=== PATIENT | male | born 1950 | race Caucasian/White ===

== ENCOUNTER 2024-01-17 08:56 | Outpatient (CLI) | payer MEDICARE, SELFPAY ==
--- OUTSIDE RECORDS SUMMARY | 2024-01-17 09:04 | XMS_ITS | Referral Summary ---
Author Organization [facility] Address [address] [place] [address] Care Team Providers Care Flame Cutting Machine Operator Name Role Phone Elsewhere, Pcp Primary Care Provider Unavailabl e Source Comments Patient records contain information from all sites at [facility]. For routine questions regarding patient records, call [phone] during business hours, M-F 8:00 AM - 5:00 PM Central Time. Record requests for emergency care only can be directed to [phone] at any time.[facility] Encounters Date Type Department Care Team Description 01/17/2024 8:30 AM CDT External Outreach Division of Nephrology and Hypertension in [place], [place] [address] [place] [address] Taylor Nunez M.D., Ph.D. Arrived 12/29/2023 10:24 AM CDT - 12/29/2023 11:59 PM CDT Hospital Encounter Department of Radiology in [address] [address] Rolan Murdock M.D. Fracture Rib Multiple Closed Initial Right Discharge Disposition: Home or Self Care 12/29/2023 10:00 AM CDT Office Visit Department of Family Medicine, [facility], in [address] [address] Rolan Murdock M.D. Fracture Rib Multiple Closed Initial Right (Primary Dx) Discharge Disposition: Home or Self Care 12/22/2023 11:43 AM CDT - 12/22/2023 2:03 PM CDT Emergency [facility] [address] [place] [phone] Koki Mar APRN, C.N.P., D.N.P. Fracture Rib Multiple Closed Initial Right (Primary Dx) Discharge Disposition: Home or Self Care from Last 3 Months Allergies No known active allergies Medications Medication Sig Dispensed Refills Start Date End Date Status lisinopriL 20 mg tablet Take 2 tablets by mouth daily. 09/09/2016 Active FLUoxetine (PROzac) 20 mg capsule Take 20 mg by mouth daily. 11/14/2023 Active allopurinoL (Zyloprim) 300 mg tablet Take 100 mg by mouth daily. 09/09/2016 Active metoprolol succinate (Toprol XL) 100 mg 24 hr tablet Take 100 mg by mouth daily. Do not crush or chew. Active hydroCHLOROthiazide (HydroDiuril) 25 mg tablet Take 25 mg by mouth daily. Active oxyCODONE (Roxicodone) 5 mg immediate release tabletIndications:A cute Pain Take 1 tablet (5 mg total) by mouth every 6 (six) hours as needed for severe pain or score 7-10 of 10 for up to 3 days Indication: Acute Pain. 12 tablet 12/22/2023 12/25/2023 lidocaine (Lidoderm) 5 % adhesive patch,medicated Place 1 patch on the skin daily for 10 days. Apply to right lower chest/ribs. 10 patch 12/22/2023 01/01/2024 Active Problems Problem Noted Date Diagnosed Date History Of Falling 12/29/2023 Social History Tobacco Use Types Packs/Day Years Used Date Smoking Tobacco: Former Smokeless Tobacco: Never Tobacco Cessation:Counseling Given: Not Answered PHQ-2 Answer Date Recorded PHQ-2 Score 2 12/29/2023 Nutrition Answer Date Recorded Nutrition: EVOO Fat Source 13 12/24 Nutrition: Servings of Fruits/Vegetables per Day Not on file 12/25/2019 Dental Answer Date Recorded Dental: Regular Dentist Unknown 06/11/19 21 Sex and Gender Information Value Date Recorded Sex Assigned at Not on file Gender Identity Not on file Sexual Orientation Not on file Last Filed Vital Signs Vital Sign Reading Time Taken Comments Blood Pressure 150/77 12/29/2023 9:49 AM CDT Pulse 73 12/29/2023 9:49 AM CDT Temperature 35.8 ??C (96.4 ??F) 12/29/2023 9:41 AM CD T Respiratory Rate 18 12/22/2023 11:42 AM CDT Oxygen Saturation 95% 12/22/2023 1:52 PM CDT Inhaled Oxygen Concentration - - Weight 73.3 kg (161 lb 9.6 oz) 12/29/2023 9:41 A M CDT Height 172.5 cm (5' 7.91) 12/29/2023 9:41 AM CD T Body Mass Index 24.63 12/29/2023 9:41 AM CDT Plan of Treatment Not on file Procedures Procedure Name Priority Date/Time Associated Diagnosis Comments DX CHEST AP OR PA AND LATERAL 2 VIEWS RAD - Routine (most inpatients and all outpatients) 12/29/2023 10:36 AM CDT Fracture Rib Multiple Closed Initial Right DX CHEST AP OR PA AND LATERAL 2 VIEWS RAD - Semiurgent (Fast; most ED patients; some inpatients) 12/22/2023 12:48 PM CDT LACTATE, B/P STAT 12/22/2023 12:27 PM CDT BASIC METABOLIC PANEL, S/P STAT 12/22/2023 12:27 PM CDT CBC WITH DIFFERENTIAL, B STAT 12/22/2023 12:27 PM CDT SARS COV-2,INFLUENZA A/B,RSV,PCR, V STAT 12/22/2023 12:25 PM CDT from Last 3 Months Results * DX Chest AP or PA and Lateral 2 Views (12/29/2023 10:36 AM CDT) Only the most recent of2 resultswithin the time period is included. Anatomical Region Laterality Modality Chest, Thoracic RST LOS, Tho racic ARZ LOS, Thoracic FLA LOS N/A Digital Radiography Impressions 12/29/2023 11:19 AM CDT Comparison 12/22/2023. There are again multiple mildly displaced right lateral rib fractures which appear unchanged from the prior study. No pleural effusion, pneumothorax or focal consolidation. Heart size normal. Narrative 12/29/2023 11:19 AM CDT EXAM: DX CHEST AP OR PA AND LATERAL 2 VIEWS Procedure Note Chago Car M.D. - 12/29/2023 EXAM: DX CHEST AP OR PA AND LATERAL 2 VIEWS IMPRESSION: Comparison 12/22/2023. There are again multiple mildly displaced right lateral rib fractureswhich appear unchanged from the prior study. No pleural effusion,pneumothorax or focal consolidation. Heart size normal. Rolan Murdock M.D. G DIAGNOSTIC IMAGI NG PROCEDURES * (ABNORMAL) CBC with Differential, Blood (12/22/2023 12:27 PM CDT) Hemoglobin 11.9(L) 13.2 - 16.6 g/dL 12/22/2023 12:36 PM CDT [facility] Hematocrit 32.3(L) 38.3 - 48.6 % 12/22/2023 12:36 PM CDT [facility] Erythrocytes 3.60(L) 4.35 - 5.65 x10(12)/L 12/22/2023 12:36 PM CDT [facility] MCV 89.7 78.2 - 97.9 fL 12/22/2023 12:36 PM CDT [facility] RBC Distrib Width 13.0 11.8 - 14.5 % 12/22/2023 12:36 PM CDT [facility] Platelet Count 376(H) 135 - 317 x10(9)/L 12/22/2023 12:36 PM CDT [facility] Leukocytes 15.7(H) 3.4 - 9.6 x10(9)/L 12/22/2023 12:36 PM CDT [facility] Neutrophils 13.07(H) 1.56 - 6.45 x10(9)/L 12/22/2023 12:36 PM CDT [facility] Lymphocytes 1.28 0.95 - 3.07 x10(9)/L 12/22/2023 12:36 PM CDT [facility] Monocytes 1.21(H) 0.26 - 0.81 x10(9)/L 12/22/2023 12:36 PM CDT [facility] Eosinophils 0.04 0.03 - 0.48 x10(9)/L 12/22/2023 12:36 PM CDT [facility] Basophils 0.06 0.01 - 0.08 x10(9)/L 12/22/2023 12:36 PM CDT [facility] Blood (Blood, Venous) 12/22/2023 12:27 PM CDT 12/22/2023 12:30 PM CDT Koki Mar APRN C.N.P., D.N.P. LA B BLOOD ADD-ON [facility] [address] [place] [address], [place] [address], [facility] [address] [address] * Lactate (12/22/2023 12:27 PM CDT) Lactate, P 1.7 0.5 - 2.2 mmol/L 12/22/2023 12:47 PM CDT [facility] Blood (Blood, Venous) 12/22/2023 12:27 PM CDT 12/22/2023 12:30 PM CDT Koki Mar APRN, C.N.P., D.N.P. LA B BLOOD NON ADD-ON [facility] [address] [place] [address], [facility] [address] [address] * (ABNORMAL) Basic Metabolic Panel (12/22/2023 12:27 PM CDT) Potassium, P 4.1 3.6 - 5.2 mmol/L 12/22/2023 12:49 PM CDT [facility] Sodium, P 121(L) 135 - 145 mmol/L 12/22/2023 12:49 PM CDT [facility] Chloride, P 81(L) 98 - 107 mmol/L 12/22/2023 12:49 PM CDT [facility] Bicarbonate, P 29 22 - 29 mmol/L 12/22/2023 12:49 PM CDT [facility] Anion Gap, P 11 7 - 15 12/22/2023 12:49 PM CDT [facility] BUN (Blood Urea Nitrogen), P 17 8 - 24 mg/dL 12/22/2023 12:49 PM CDT [facility] Creatinine 1.25 0.74 - 1.35 mg/dL 12/22/2023 12:49 PM CDT [facility] Estimated GFR (eGFR) 62 >=60 mL/min/BSA 12/22/2023 12:49 PM CDT [facility] Comment: Estimated GFR calculated using the 2020 CKD_EPI creatinine equation. Calcium, Total, P 9.1 8.8 - 10.2 mg/dL 12/22/2023 12:49 PM CDT [facility] Glucose, P 163(H) 70 - 140 mg/dL 12/22/2023 12:49 PM CDT [facility] Blood (Blood, Venous) 12/22/2023 12:27 PM CDT 12/22/2023 12:30 PM CDT Koki Mar APRN, C.N.P., D.N.P. LA B BLOOD ADD-ON [facility] [address] [place] [id number], [facility] in [place] [address] [place] [address] * SARS CoV-2, Influenza A/B, RSV, PCR Symptomatic (12/22/2023 12:25 PM CDT) Influenza A, PCR Undetected Undetected 12/22/19 1:11 PM CDT [facility] Comment:Influenza A viral RN A absent. Influenza B, PCR Undetected Undetected 12/22/19 1:11 PM CDT [facility] Comment:Influenza B viral RN A absent. Respiratory Syncytial Virus, PCR Undetected Undetected 12/22/2023 1:11 PM CDT [facility] Comment:RSV RNA absent. SARS-Coronavirus -2, PCR Undetected Undetected 12/22/2023 1:11 PM CDT [facility] Comment: SARS-CoV-2 RNA absent. ?? ----ADDITIONAL INFORMATION---- This RT-PCR test using the Xpert Xpress SARS-CoV-2/Flu/RSV assay ([employer] performed on the [employer] systems has received Emergency Use Authorization (EUA) by the U.S. Food and Drug Administration. Performance characteristics were verified by [facility] in a manner consistent with CLIA requirements. Fact sheets for this Emergency Use Authorization (EUA) assay can be found at the following links: For Healthcare Providers: https://www.fda.gov/media/489486/download For Patients: https://www.fda.gov/media/958175/download Specimen Source Swab, Nasopharynx 12/22/2023 12:30 PM CDT [facility] Swab (Nasopharynx) 12/22/2023 12:25 PM CDT 12/22/2023 12:30 PM CDT Koki Mar APRN, C.N.P., D.N.P. LA Chu MICROBIOLOGY - GENERAL ORDERABLES [facility] [address] [place] [address], [facility] in [place] [address] [place] [address] from Last 3 Months Care Teams Flame Cutting Machine Operator Relationship Specialty Start Date End Date Elsewhere, Pcp PCP - General Internal Medicine 12/22/23
--- OUTSIDE RECORDS SUMMARY | 2024-01-17 09:04 | XMS_ITS | Clinical Summary ---
Author Organization [facility] Address [address] [place] [address] Care Team Providers Care Lap Grinder Name Role Phone Elsewhere, Pcp Primary Care Provider Unavailabl e Source Comments Patient records contain information from all sites at [facility]. For routine questions regarding patient records, call [phone] during business hours, M-F 8:00 AM - 5:00 PM Central Time. Record requests for emergency care only can be directed to [phone] at any time.[facility] Allergies No known active allergies Medications Medication [...] Date Diagnosed Date History Of Falling 12/29/2023 Encounters Date Type Department Care Team Description 01/17/2024 8:30 AM CDT External Outreach Division of Nephrology and Hypertension in [place], [place] [address] [place] [address] Taylor Nunez M.D., Ph.D. Arrived 12/29/2023 10:24 AM CDT - 12/29/2023 11:59 PM CDT Hospital Encounter Department of Radiology in [address] [phone] Rolan Murdock M.D. Fracture Rib Multiple Closed Initial Right Discharge Disposition: Home or Self Care 12/29/2023 10:00 AM CDT Office Visit Department of Family Medicine, [facility], in [address] [phone] Rolan Murdock M.D. Fracture Rib Multiple Closed Initial Right (Primary Dx) Discharge Disposition: Home or Self Care 12/22/2023 11:43 AM CDT - 12/22/2023 2:03 PM CDT Emergency [facility] [address] [place] [phone] Koki Mar, LISANDRO, C.N.P., D.N.P. Fracture Rib Multiple Closed Initial Right (Primary Dx) Discharge Disposition: Home or Self Care from Last 3 Months Social History Tobacco Use Types Packs/Day Years [...] 12/29/2023 9:41 AM CDT Plan of Treatment Health Maintenance Due Date Last Done Comments Abdominal Aortic Aneurysm (AAA) Screen 1952 CT Colonography 1952 Cologuard 1950 Colonoscopy 1950 Colorectal Cancer Screening 1950 FIT 1950 Hepatitis C Screening 1950 DTaP,Tdap,and Td Vaccines (1 - Tdap) 01/28/1971 Zoster Vaccines (1 of 2) 01/28/2002 Pneumococcal vaccine (65+ ye ars) (1 of 1 - PCV) 01/28/2017 COVID-19 Vaccine (1 - season) 2023 Influenza Vaccine (#1) 2024 Creatinine Level (Kidney Function Test) 12/21/2024 0 12/22/2023, 09/09/2016 Potassium Level 12/21/2024 12/22/2023, 09/09/2016 Sodium Level 12/21/2024 12/22/2023, 09/09/2016 Fasting Glucose for Diabetes Screening 12/21/2026, 09/09/2016 Depression Screening (Annual PHQ-2) Completed 12/28, 12/29/2023 Fall Risk Screen (Annual) Completed 12/29/2023 Procedures Procedure Name Priority Date/Time Associated Diagnosis [...] consolidation. Heart size normal. Rolan Murdock M.D. IM[facility]enaida DIAGNOSTIC IMAGI NG PROCEDURES * (ABNORMAL) CBC [...] APRN, C.N.P., D.N.P. LA B BLOOD ADD-ON [facility] [address] [place] [address], [facility] [place] [address] [address] * Lactate (12/22/2023 12:27 PM CDT) Lactate, P 1.7 0.5 - 2.2 mmol/L 12/22/2023 12:47 PM CDT [facility] Blood (Blood, Venous) 12/22/2023 12:27 PM CDT 12/22/2023 12:30 PM CDT Koki Mar APRN, C.N.P., D.N.PSisi LA B BLOOD NON ADD-ON [facility] [address] [place] [address], [facility] [place] [address] [place] [address] * (ABNORMAL) Basic Metabolic Panel (12/22/2023 12:27 [...] 12:30 PM CDT Koki Mar APRN, C.N.P., D.N.PSisi LA Chu BLOOD ADD-ON [facility] [address] [place] [address], [facility] [place] [address] [place] [address] * SARS CoV-2, Influenza A/B, RSV, PCR [...] test using the Xpert Xpress SARS-CoV-2/Flu/RSV assay ([employer] performed on the [employer] systems has received Emergency Use Authorization (EUA) by the U.S. Food and Drug Administration. Performance characteristics were verified by [facility] in a manner consistent with CLIA requirements. Fact sheets for this Emergency Use Authorization (EUA) assay can be found at the following links: For Healthcare Providers: https://www.fda.gov/media/976991/download For Patients: https://www.fda.gov/media/244108/download Specimen Source Swab, Nasopharynx 12/22/2023 12:30 PM CDT [facility] Swab (Nasopharynx) 12/22/2023 12:25 PM CDT 12/22/2023 12:30 PM CDT Socorro Last APRNNSisiPSisi, Fuad YA MICROBIOLOGY - GENERAL ORDERABLES [facility] [address] [place] [address], [facility] [place] [address] [place] [address] from Last 3 Months Care Teams Lap Grinder Relationship Specialty Start Date End Date Elsewhere, Pcp PCP - General Internal Medicine 12/22/23
--- OUTSIDE RECORDS SUMMARY | 2024-01-17 09:04 | XMS_ITS | Encounter Summary ---
Author Organization [facility] Address [address] [place] [address] Care Team Providers Care Geriatric Physical Therapist Name Role Phone Elsewhere, Pcp Primary Care Provider Unavailabl e Reason for Referral * Outpatient (Routine) - Closed Specialty Diagnoses / Procedures Referred By Shelia jaramillo Referred To Contact Emergency Medicine Diagnoses Fracture Rib Multiple Closed Initial Right Koki Mar APRN, C.N.P., D.N.P. [address] [place] [address] [facility] Referral ID Status Reason Start Date Expiration Date Visits Re quested Visits Authorized [id number] Closed 12/22/2023 06/22/2025 1 1 Reason for Visit * Reason Comments Chest Wall Pain Encounter Details Date Type Department Care Team (Late st Contact Info) Description 12/22/2023 11:43 AM CDT - 12/22/2023 2:03 PM CDT Emergency [place] [facility] [address] [place] [phone] Koki Mar APRN, C.N.P., D.N.P. [address] [place] [phone] Fracture Rib Multiple Closed Initial Right (Primary Dx) Discharge Disposition: Home or Self Care Social History Tobacco Use Types Packs/Day Years Used Date Smoking Tobacco: Former Nutrition Answer Date Recorded Nutrition: EVOO Fat Source 13 12/24 Nutrition: Servings of Fruits/Vegetables per Day Not on file 12/25/2019 Dental Answer Date Recorded Dental: Regular Dentist Unknown 06/11/19 21 Sex and Gender Information Value Date Recorded Sex Assigned at Not on file Gender Identity Not on file Sexual Orientation Not on file documented as of this encounter Last Filed Vital Signs Vital Sign Reading Time Taken Comments Blood Pressure 173/77 12/22/2023 2:00 PM CDT Pulse 57 12/22/2023 1:52 PM CDT Temperature 37.1 ??C (98.8 ??F) 12/22/2023 11:42 AM C DT Respiratory Rate 18 12/22/2023 11:42 AM CDT Oxygen Saturation 95% 12/22/2023 1:52 PM CDT Inhaled Oxygen Concentration - - Weight 74.5 kg (164 lb 2.1 oz) 12/22/2023 11:40 AM CDT Height - - Body Mass Index 24.24 09/09/2016 3:01 PM CDT documented in this encounter Discharge Instructions * Discharge Instructions* Koki Mar APRN, C.N.P., D.N.P. - 12/22/2023 1:41 PM CDT An electronic referral submitted to the primary clinic for follow-up in 1 week for deputy chief sheriff x-ray; they will call you to schedule. Alternate acetaminophen 500 mg every 4 hours with ibuprofen 600 mg every 6 hours as needed for pain, reserving your prescription pain medication for breakthrough pain. Your prescription pain medication will make you drowsy and may constipate you. Increase your fluid and fiber intake and utilize stool softeners and/or laxatives as needed to maintain normal bowel function. Make position changes slowly and do not operate heavy machinery or drink alcoholic beverages. Do your incentive spirometry breathing 10 times every hour during awake hours to prevent the development of pneumonia. Return to the ED immediately if you develop any difficulty breathing, chest pain, or fevers greater than 100.4. * Attachments The following attachments cannot be sent through Care Everywhere. * Oxycodone Capsules or Tablets (Marshallese) * Rib Fracture [id number] (Marshallese) * Using an Incentive Spirometer (Marshallese) documented in this encounter Medications at Time of Discharge Medication Sig Dispensed Refills Start Date End Date allopurinoL (Zyloprim) 300 mg tablet Take 100 mg by mouth daily. 09/09/2016 FLUoxetine (PROzac) 20 mg capsule Take 20 mg by mouth daily. 11/14/2023 hydroCHLOROthiazide (HydroDiuril) 25 mg tablet Take 25 mg by mouth daily. lisinopriL 20 mg tablet Take 2 tablets by mouth daily. 09/09/2016 metoprolol succinate (Toprol XL) 100 mg 24 hr tablet Take 100 mg by mouth daily. Do not crush or chew. lidocaine (Lidoderm) 5 % adhesive patch,medicated Place 1 patch on the skin daily for 10 days. Apply to right lower chest/ribs. 10 patch 12/22/2023 01/01/2024 oxyCODONE (Roxicodone) 5 mg immediate release tabletIndications:Acute Pain Take 1 tablet (5 mg total) by mouth every 6 (six) hours as needed for severe pain or score 7-10 of 10 for up to 3 days Indication: Acute Pain. 12 tablet 12/22/2023 12/25/2023 documented as of this encounter Progress Notes * Hilary Espinoza R.R.T., C.R.T. - 12/22/2023 1:36 PM CDT Educated Pt on the Incentive Spirometer due to 4 rib fractures. Also, educated to hold a pillow while coughing. documented in this encounter ED Notes * Koki Mar APRN, C.N.P., D.N.P. - 12/22/2023 11:55 AM CDT SUBJECTIVE CHIEF COMPLAINT/REASON FOR VISIT Chest Wall Pain HISTORY OF PRESENT ILLNESS History provided by: Patient and medical records supervisor fur floor worker needed/used: no Mr. Joselito Diaz Is a 73-year-old male who presents via private vehicle accompanied with complaints of right-sided rib pain during a fall approximately 1 week ago onto the right side of hischest. Medical history includes hypertension, gout, and depression. He recalls tripping over his [employer] last week hitting the right side of his chest into the coffee table. He is not anticoagulated, did not lose consciousness, and did not his head. Pain has persisted since that time and isminimally responsive to Tylenol which he last took at 10:00 a.m.. He presents now with new chills an intermittently productive cough. No rash or change in bowel or bladder function or p.o. intake. REVIEW OF SYSTEMS Respiratory: See HPI above. OBJECTIVE Initial Vitals [12/22/23 1142] Temperature 37.1 ??C Pulse Rate 63 Heart Rate Resp Rate 18 Blood Pressure (!) 171/67 SpO2 96 % Pain Score 9 PHYSICAL EXAMINATION Constitutional: Nursing note and vitals reviewed. No distress. HENT: Head: Normocephalic and atraumatic. Head is without raccoon's eyes and without Alcala's sign.There is normal jaw occlusion. Mouth/Throat: Mucous membranes are moist. Eyes: Conjunctivae and EOM are normal. Pupils are equal, round, and reactive to light. Neck: Neck supple. Moving head and neck freely in all directions. No cervical, thoracic, lumbar, or sacral spine tenderness or step-offs. No pain with axial loading. Bilateral buttocks sensation intact bilaterally. Cardiovascular: Normal rate, S1 normal and S2 normal. Pulses are strong. Capillary refill: takes less than 3 secondsEdema: no edema noted Pulmonary/Chest: Effort normal and breath sounds normal. There is normal air entry. No stridor. No respiratory distress. He has no wheezes. He has no rhonchi. He has no rales. No deformity, ecchymosis, abrasion, or dermatomal rash to the anterior and posterior thorax. No flail chest. No crepitus. Right anterior rib pain is reproducible. Abdominal: Soft. exhibits no distension. There is no abdominal tenderness. There is no rebound and no guarding. Musculoskeletal: General: Normal range of motion. Cervical back: Normal range of motion and neck supple. Neurological: Alert. He has normal strength. He is not disoriented. Normal speech. Gait normal. Skin: Skin is warm, dry and intact. No rash noted. Psychiatric: He has a normal mood and affect. Behavior is normal. ASSESSMENT/PLAN 73-year-old male presents hypertensive but otherwise afebrile and hemodynamically appropriate with complaints of 10/10 right anterior rib pain following a ground level mechanical fall approximate 1 week ago in his home (tripped over cat). He is concerned for his ongoing pain and new onset chills with intermittently productive cough. Will maintain a broad differential in obtain screening labs including chest x-ray for further evaluation. Differentials considered include but not limited to rib fracture, pneumothorax, hemothorax, chest wall contusion, pneumonia, among others. Presentation and phy sical exam findings are not consistent with herpes zoster. Pulmonary hygiene via incentive spirometry with intramuscular Toradol and Lidoderm patch for symptomatic relief. ED Course as of 12/22/23 1342 Vicky Dec 22, 2023 1306 Creatinine: 1.25 No acute kidney injury. Normal creatinine, BUN and eGFR. Normal potassium. Sodium 121 and chloride 81. 1307 Lactate: 1.7 Normal lactate. 1308 Leukocytes(!): 15.7 Neutrophilic predominant leukocytosis at 15.7. Hemoglobin 11.9 and platelet count 376. 1311 I reviewed the chest x-ray images and agree with radiologist impression: Mildly displaced right lateral fifth, sixth, seventh and eighth rib fractures. No pneumothorax. Mild bibasilar atelectasis, left greater than right. No pleural effusion or focal consolidation. Heart size normal. 1311 ATC contacted for TCGS consultation for multiple mildly displaced rib fractures (right [id number]). Text paged general surgery in [place]. 1312 Influenza A, PCR: Undetected 1313 Influenza B, PCR: Undetected 1313 Respiratory Syncytial Virus, PCR: Undetected 1313 SARS Coronavirus-2, PCR: Undetected 1320 Call received from [place] [facility] on behalf of Dr. Tyalor. He agrees with outpatient follow up in one week for repeat CXR with pulmonary hygiene and pain control. 1325 Diagnostic results were discussed with the patient and his support person in plain, every day language. All questions answered and concerns addressed. They verbalized understanding and agreementwith the plan to discharge home with follow-up in 1 week for repeat imaging with pulmonary hygiene and pain control. Discussed narcotic safety measures and return precautions. Final Diagnoses: as of 12/22/23 1342 Fracture Rib Multiple Closed Initial Right - mildly displaced, right lateral ribs 5th-8th Koki Mar APRN, C.N.P., D.N.P. 12/22/23 1342 * Amber Benitez R.N. - 12/22/2023 11:41 AM CDT Pt fell 1 week ago; injury to right side of chest. Pt has change in breathing, new cough, cold. Amber Benitez R.N. 12/22/23 1141 documented in this encounter Plan of Treatment Scheduled Referrals Name Type Priority Associated Diagnoses Orde r Schedule POST ED VISIT Family Medicine Outpatient Referral Routine Fracture Rib Multiple Closed Initial Right Expected: 12/29/2023, Expires: 03/22/2025 documented as of this encounter Procedures Procedure Name Priority Date/Time Associated Diagnosis Comments DX CHEST AP OR PA AND LATERAL 2 VIEWS RAD - Semiurgent (Fast; most ED patients; some inpatients) 12/22/2023 12:48 PM CDT CBC WITH DIFFERENTIAL, B STAT 12/22/2023 12:27 PM CDT LACTATE, B/P STAT 12/22/2023 12:27 PM CDT BASIC METABOLIC PANEL, S/P STAT 12/22/2023 12:27 PM CDT SARS COV-2,INFLUENZA A/B,RSV,PCR, V STAT 12/22/2023 12:25 PM CDT documented in this encounter Results * DX Chest AP or PA and Lateral 2 Views (12/22/2023 12:48 PM CDT) Anatomical Region Laterality Modality Chest, Thoracic RST LOS, Tho racic ARZ LOS, Thoracic FLA LOS N/A Digital Radiography Impressions 12/22/2023 1:00 PM CDT Comparison 09/09/2016. Mildly displaced right lateral fifth, sixth, seventh and eighth rib fractures. No pneumothorax. Mild bibasilar atelectasis, left greater than right. No pleural effusion or focal consolidation. Heart size normal. Narrative 12/22/2023 1:00 PM CDT EXAM: DX CHEST AP OR PA AND LATERAL 2 VIEWS Procedure Note Chago Car M.D. - 12/22/2023 EXAM: DX CHEST AP OR PA AND LATERAL 2 VIEWS IMPRESSION: Comparison 09/09/2016. Mildly displaced right lateral fifth, sixth, seventh and eighth ribfractures. No pneumothorax. Mild bibasilar atelectasis, left greater thanright. No pleural effusion or focal consolidation. Heart size normal. Koki Mar APRN, C.N.P., D.N.P. IM G DIAGNOSTIC IMAGING PROCEDURES * Lactate (12/22/2023 12:27 PM CDT) Lactate, P 1.7 0.5 - 2.2 mmol/L 12/22/2023 12:47 PM CDT [facility] Blood (Blood, Venous) 12/22/2023 12:27 PM CDT 12/22/2023 12:30 PM CDT Koki Mar APRN, C.N.P., D.N.P. LA B BLOOD NON ADD-ON [facility] [address] [place] [address], [facility] [place] [address] [place] [phone] * (ABNORMAL) Basic Metabolic Panel (12/22/2023 12:27 [...] APRN, C.N.P., D.N.P. LA B BLOOD ADD-ON [facility] [address] [place] [address], [facility] [place] [address] [place] [address] * (ABNORMAL) CBC with Differential, Blood (12/22/2023 [...] APRN, C.N.P., D.N.P. LA B BLOOD ADD-ON [facility] [address] [place] [address], [facility] [place] [address] [place] [address] * SARS CoV-2, Influenza A/B, RSV, PCR [...] test using the Xpert Xpress SARS-CoV-2/Flu/RSV assay ([employer] performed on the [employer] systems has received Emergency Use Authorization (EUA) by the U.S. Food and Drug Administration. Performance characteristics were verified by [facility] in a manner consistent with CLIA requirements. Fact sheets for this Emergency Use Authorization (EUA) assay can be found at the following links: For Healthcare Providers: https://www.fda.gov/media/829145/download For Patients: https://www.fda.gov/media/213396/download Specimen Source Swab, Nasopharynx 12/22/2023 12:30 PM CDT [facility] Swab (Nasopharynx) 12/22/2023 12:25 PM CDT 12/22/2023 12:30 PM CDT Koki Mar APRN, C.N.P., D.N.P. LA Chu MICROBIOLOGY - GENERAL ORDERABLES [facility] [address] [place] [address], [facility] [place] [phone] documented in this encounter Visit Diagnoses Diagnosis Fracture Rib Multiple Closed Initial Right- Primary documented in this encounter Administered Medications Inactive Administered Medications - up to 3 most recent administrations Medication Order MAR Action Action Date Dose Rate Site ketorolac injection 15 mg (ToradoL) 15 mg, intramuscular, Once, On Vicky 12/22/23 at 1217, For 1 dose, Adult IV push rate: Over 15 seconds. Peds IV push rate: Over 1 minute. Doses > 15 mg IV/IM are discouraged due to lack of additional analgesic benefit. Given 12/22/2023 12:23 PM CDT 15 mg Left Deltoid lidocaine 5 % 1 patch (Lidoderm) 1 patch, transdermal, Administer over 12 Hours, Once, On Vicky 12/22/23 at 1217, For 1 dose, Remove after 12 hours. Medication Applied 12/22/2023 12:24 PM CDT 1 patch Left Lower Abdomen oxyCODONE IR tablet 5 mg (Roxicodone) 5 mg, oral, Once, On Vicky 12/22/23 at 1316, For 1 dose Given 12/22/2023 1:19 PM CDT 5 mg documented in this encounter Active and Recently Administered Medications Times are shown in CDT. Scheduled Medication Order 12/20/2023 12/21/2023 12/22/2023 ketorolac injection 15 mg (ToradoL) (COMPLETED) 15 mg, intramuscular, Once, On Vicky 12/22/23 at 1217, For 1 dose, Adult IV push rate: Over 15 seconds. Peds IV push rate: Over 1 minute. Doses > 15 mg IV/IM are discouraged due to lack of additional analgesic benefit. 1223 (Given - Provid er: Radha Vazquez R.N.) lidocaine 5 % 1 patch (Lidoderm) 1 patch, transdermal, Administer over 12 Hours, Once, On Vicky 12/22/23 at 1217, For 1 dose, Remove after 12 hours. 1224 (Medication Brennan lied - Provider: Radha Vazquez R.N. - Comment: over left ribs)1403 (Due: Medication Removed - Provider: Discharge Provider, Automatic - Comment: Time automatically adjusted from order being discontinued) oxyCODONE IR tablet 5 mg (Roxicodone) (COMPLETED) 5 mg, oral, Once, On Vicky 12/22/23 at 1316, For 1 dose 1319 (Given - Provid er: Radha Vazquez R.N.) documented in this encounter Additional Health Concerns Infection Onset Date Last Indicated Resolved Time COVID19 Pending 12/22/2023 12/22/2023 12/22/2023 1 :11 PM CDT documented as of this encounter Care Teams Geriatric Physical Therapist Relationship Specialty Start Date End Date Elsewhere, Pcp PCP - General Internal Medicine 12/22/23 documented as of this encounter
--- OUTSIDE RECORDS SUMMARY | 2024-01-17 09:04 | XMS_ITS | Encounter Summary ---
Author Organization [facility] Address [address] [place] [address] Care Team Providers Care Television Specialist Name Role Phone Elsewhere, Pcp Primary Care Provider Unavailabl e Reason for Referral * Outpatient (Routine) - Closed Specialty Diagnoses / Procedures Referred By Shelia jaramillo Referred To Contact Diagnoses Fracture Rib Multiple Closed Initial Right Procedures DX Chest AP or PA and Lateral 2 Views Rolan Murdock M.D. [address] [place] [phone] [facility] Referral ID Status Reason Start Date Expiration Date Visits Re quested Visits Authorized [id number] Closed 12/29/2023 12/28/2024 1 1 Reason for Visit * Outpatient (Routine) - Closed Specialty Diagnoses / Procedures Referred By Shelia jaramillo Referred To Contact Diagnoses Fracture Rib Multiple Closed Initial Right Procedures DX Chest AP or PA and Lateral 2 Views Rolan Murdock M.D. [address] [place] [phone] [facility] Referral ID Status Reason Start Date Expiration Date Visits Re quested Visits Authorized [id number] Closed 12/29/2023 12/28/2024 1 1 Encounter Details Date Type Department Care Team (Latest Contact Info) Description 12/29/2023 10:24 AM CDT - 12/29/2023 11:59 PM CDT Hospital Encounter Department of Radiology in [address] [phone] Rolan Murdock M.D. [address] [facility] [place] [phone] Fracture Rib Multiple Closed Initial Right Discharge Disposition: Home or Self Care Social History Tobacco Use Types Packs/Day Years Used Date Smoking Tobacco: Former Smokeless Tobacco: Never PHQ-2 Answer Date Recorded PHQ-2 Score 2 [...] on file documented as of this encounter Medications at Time of Discharge [...] right lower chest/ribs. 10 patch 12/22/2023 01/01/2024 documented as of this encounter Plan of Treatment Not on file documented as of this encounter Procedures Procedure Name Priority Date/Time Associated Diagnosis Comments DX CHEST AP OR PA AND LATERAL 2 VIEWS RAD - Routine (most inpatients and all outpatients) 12/29/2023 10:36 AM CDT Fracture Rib Multiple Closed Initial Right documented in this encounter Results * DX Chest AP or PA and Lateral 2 Views (12/29/2023 10:36 AM CDT) Anatomical Region Laterality Modality Chest, Thoracic [...] or focal consolidation. Heart size normal. Rolan [facility] NG PROCEDURES documented in this encounter Visit Diagnoses Diagnosis Fracture Rib Multiple Closed Initial Right documented in this encounter Care Teams Television Specialist Relationship Specialty Start Date End Date Elsewhere, Pcp PCP - General Internal Medicine 12/22/23 documented as of this encounter
--- OUTSIDE RECORDS SUMMARY | 2024-01-17 09:04 | XMS_ITS | Encounter Summary ---
Author Organization [facility] Address [address] [place] [address] Care Team Providers Care Maintenance Engineer Name Role Phone Elsewhere, Pcp Primary Care Provider Unavailabl e Reason for Visit * Appointment Request (Routine) - Closed Specialty Diagnoses / Procedures Referred By Shelia jaramillo Referred To Contact Nephrology and Hypertension Florin Enriquez M.D. [address] [place] [phone] Referral ID Status Reason Start Date Expiration Date Visits Re quested Visits Authorized [id number] Closed 12/23/2023 12/22/2024 1 1 Encounter Details Date Type Department Care Team (Late st Contact Info) Description 01/17/2024 8:30 AM CDT External Outreach Division of Nephrology and Hypertension in [place], [place] [address] [place] [phone] Taylor Nunez M.D., Ph.D. [address] [place] [phone] Arrived Social History Tobacco Use Types Packs/Day Years [...] on file documented as of this encounter Plan of Treatment Not on file documented as of this encounter Visit Diagnoses Not on filedocumented in this encounter Care Teams Maintenance Engineer Relationship Specialty Start Date End Date Elsewhere, Pcp PCP - General Internal Medicine 12/22/23 documented as of this encounter
--- OUTSIDE RECORDS SUMMARY | 2024-01-17 09:04 | XMS_ITS ---
Author Organization [facility] Address [address] [place] [address] Care Team Providers Care Field Marketing Associate Name Role Phone Unavailable Unavailable Unavailable Surgery Details Not on file Complications Check Surgery Details section. Procedure Estimated Blood Loss Check Surgery Details section. Procedure Findings Check Surgery Details section. Procedure Specimens Taken Check Surgery Details section.
--- OUTSIDE RECORDS SUMMARY | 2024-01-17 09:04 | XMS_ITS | Encounter Summary ---
Author Organization [facility] Address [address] [place] [address] Care Team Providers Care Community Coordinator For [employer] Name Role Phone Elsewhere, Pcp Primary Care Provider Unavailabl e Reason for Referral * Outpatient (Routine) - Closed Specialty Diagnoses / Procedures Referred By Shelia jaramillo Referred To Contact Diagnoses Fracture Rib Multiple Closed Initial Right Procedures DX Chest AP or PA and Lateral 2 Views Rolan Murdock M.D. [address] [place] [address] [facility] Region Referral ID Status Reason Start Date Expiration Date Visits Re quested Visits Authorized [id number] Closed 12/29/2023 12/28/2024 1 1 Reason for Visit * Reason Comments Post Ed Visit Follow-up * Outpatient (Routine) - Closed Specialty Diagnoses / Procedures Referred By Shelia jaramillo Referred To Contact Emergency Medicine Diagnoses Fracture Rib Multiple Closed Initial Right OKoki Golden APRN, C.N.P., D.N.P. [address] [place] [address] [facility] Region Referral ID Status Reason Start Date Expiration Date Visits Re quested Visits Authorized [id number] Closed 12/22/2023 06/22/2025 1 1 Encounter Details Date Type Department Care Team ([facility] st Contact Info) Description 12/29/2023 10:00 AM CDT Office Visit Department of Family Medicine, [facility] [place] [facility], in [address] [address] Rolan Murdock M.D. [address] [facility] [place] [phone] Fracture Rib Multiple Closed Initial Right (Primary [...] 12/29/2023 9:41 AM CD T Respiratory Rate - - Oxygen Saturation - - Inhaled Oxygen Concentration - - Weight 73.3 kg (161 lb 9.6 oz) 12/29/2023 9:41 A M CDT Height 172.5 cm (5' 7.91) 12/29/2023 9:41 AM CD T Body Mass Index 24.63 12/29/2023 9:41 AM CDT documented in this encounter Progress Notes * Rolan Murdock M.D. - 12/29/2023 10:00 AM CDT SUBJECTIVE CHIEF COMPLAINT/REASON FOR VISIT Joselito does not have a problem list on file. He is a 73 y.o. male who presents for evaluation of Post Ed Visit Follow-up HISTORY OF PRESENT ILLNESS Joselito presents for discussion of multiple right sided rib fractures from 2 weeks ago. Patient describes the symptoms as still having some right sided pain, but no troubles breathing. Symptoms are not worsening. He doesn't smoke. He denies any fevers or hemoptysis. Treatments used so far include: Lidoderm patches, Tylenol, oxycodone. Current Outpatient Medications Medication Sig Dispense Refill allopurinoL (Zyloprim) 300 mg tablet Take 100 mg by mouth daily. FLUoxetine (PROzac) 20 mg capsule Take 20 mg by mouth daily. hydroCHLOROthiazide (HydroDiuril) 25 mg tablet Take 25 mg by mouth daily. lidocaine (Lidoderm) 5 % adhesive patch,medicated Place 1 patch on the skin daily for 10 days. Apply to right lower chest/ribs. 10 patch 0 lisinopriL 20 mg tablet Take 2 tablets by mouth daily. metoprolol succinate (Toprol XL) 100 mg 24 hr tablet Take 100 mg by mouth daily. Do not crush or chew. No current facility-administered medications for this visit. The following portions of the patient's history were reviewed and updated as appropriate: allergies, current medications, family history, medical history, social history, surgical history and problemlist. REVIEW OF SYSTEMS General: No acute distress. No fever, chills. Lungs: + cough, no SOB. Abdomen: Denies abdominal pain, no change in bowel habits. Cardiovascular: Positive for chest pain, pressure or tightness. OBJECTIVE Blood pressure 150/77, pulse 73, temperature (!) 35.8 ??C, temperature source Temporal, height 172.5 cm, weight 73.3 kg. PHYSICAL EXAMINATION Constitutional Appearance: He is well-developed. Cardiovascular Rate and Rhythm: Normal rate and regular rhythm. Heart sounds: Normal heart sounds. Pulmonary Effort: Pulmonary effort is normal. Breath sounds: Normal breath sounds. Chest Chest wall: Tenderness (Right-sided) present. Abdominal General: Bowel sounds are normal. There is no distension. Palpations: Abdomen is soft. There is no mass. Tenderness: There is no abdominal tenderness. Neurological Mental Status: He is alert and oriented to person, place, and time. Psychiatric Judgment: Judgment normal. Radiology: DX Chest AP or PA and Lateral 2 Views Narrative: EXAM: DX CHEST AP OR PA AND LATERAL 2 VIEWS Impression: Comparison 12/22/2023. There are again multiple mildly displaced right lateral rib fractures which appear unchanged from the prior study. No pleural effusion, pneumothorax or focal consolidation. Heart size normal. ASSESSMENT / PLAN #1 Fracture Rib Multiple Closed Initial Right Comments: mildly displaced, right lateral ribs 5th-8th Orders: - POST ED VISIT Family Medicine - DX Chest AP or PA and Lateral 2 Views; Future; Expected date: 12/29/2023 - chest x-ray ordered and reviewed today and essentially unchanged compared to 1 week ago. Continueincentive spirometry. He will continue with Lidoderm patches and Tylenol for pain and will use oxycodone only at night. He reports still having 4 tablets left and is unsure if he will need any further oxycodone. Follow-up if new or worsening symptoms develop. - thankfully, his pain is improved but not gone away. documented in this encounter Plan of Treatment Not on file documented as of this encounter Results * DX Chest AP [...] consolidation. Heart size normal. Rolan Murdock M.D. IMG DIAGNOSTIC IMAGI NG PROCEDURES documented in this encounter Visit Diagnoses Diagnosis Fracture Rib Multiple Closed Initial Right- Primary Fracture Rib Multiple Closed Initial Right documented in this encounter Care Teams Community Coordinator For [employer] Relationship Specialty Start Date End Date Elsewhere, Pcp PCP - General Internal Medicine 12/22/23 documented as of this encounter
[2024-01-18 20:48] LABS: Urine Osmolality 329 mOsm/kg (50-800)
== END 2024-01-17 08:57 | disposition home or self-care (01) ==
PROVIDERS: PCP Family Medicine; Visit Provider Internal Medicine Nephrology
DX: I10 Essential (primary) hypertension (principal); E87.1 Hypo-osmolality and hyponatremia
CPT/HCPCS: 80069; 82043; 82088; 82570; 83930; 83935; 83970; 84244; 84300; 84550

== ENCOUNTER 2024-01-23 10:18 | Outpatient (CLI) | payer MEDICARE, SELFPAY ==
--- OUTSIDE RECORDS SUMMARY | 2024-01-23 10:25 | XMS_ITS ---
Author Organization [facility] Address [address] [place] [address] [place] [address] Care Team Providers Care Science Professor Name Role Phone Alicia Ordoñez [phone] REASON FOR VISIT refill MEDICATIONS Medication SIG (Take, Route, Fr equency, Duration) Notes Start Date End Date Status Allopurinol 100 MG 1 tablet Orally Once a day for 90 days Active Lisinopril 40 MG 1 tablet Orally Once a day for 90 days . Active Encounters Encounter Location Date Provider Diagnosis [address] [address] 12/07/2023 Alicia Ordoñez Essential hypertensi on I10 and Gout, unspecified cause, unspecified chronicity, unspecified site M10.9 ASSESSMENTS Encounter Date Diagnosis Assessment Notes Treatment Notes Treatment Clinical Notes 12/07/2023 Essential hypertension (ICD-10 - I10) 12/07/2023 Gout, unspecified cause, unspecified chronicity, unspecified site (ICD-10 - M10.9) PLAN OF TREATMENT Medication Medication Name Sig Start Date Stop Date Notes Allopurinol 100 MG 1 tablet Orally Once a day for 90 days Lisinopril 40 MG 1 tablet Orally Once a day for 90 days . Progress Notes * Joselito STUBBS MDOB:1949 (73 yo M)Acc No.[id number]:12/07/2023 Patient:??Joselito STUBBS :1950?Age:73 Y?Sex:Erin marsh Address:[address], [place], [address] * Refills?? Refill Lisinopril Tablet, 40 MG, Orally, 90 Tablet, 1 tablet, Once a day, 90 days Refill Allopurinol Tablet, 100 MG, Orally, 90 Tablet, 1 tablet, Once a day, 90 days * true * Date:??
--- OUTSIDE RECORDS SUMMARY | 2024-01-23 10:25 | XMS_ITS ---
Author Organization [facility] Address [address] [place] [address] Care Team Providers Care Chief Engineer'S Helper Name Role Phone Smita, Alicia Unavailable [phone] REASON FOR VISIT Refills MEDICATIONS Medication SIG (Take, Route, Fr equency, Duration) Notes Start Date End Date Status FLUoxetine HCl 20 MG 1 capsule in the mo rning Orally Once a day for 90 day(s) 11/14/2023 Active Encounters Encounter Location Date Provider Diagnosis [address] [address] 12/14/2023 Alicia Smita PLAN OF TREATMENT Medication Medication Name Sig Start Date Stop Date Notes FLUoxetine HCl 20 MG 1 capsule in the mo rning Orally Once a day for 90 day(s) 11/14/2023 Progress Notes * Joselito STUBBS MDOB:1949 (73 yo M)Acc No.[id number]:12/14/2023 Patient:??Joselito STUBBS :1950?Age:73 Y?Sex:Erin marsh Address:[address] [place] [address], [address] * Refills?? Refill FLUoxetine HCl Capsule, 20 MG, Orally, 90, 1 capsule in the morning, Once a day, 90 day(s) * true * Date:??
--- OUTSIDE RECORDS SUMMARY | 2024-01-23 10:25 | XMS_ITS | Clinical Summary ---
Author Organization [facility] Address [address] [place] [address] Care Team Providers Care Ecommerce Manager Name Role Phone Elsewhere, Pcp Primary Care Provider Unavailabl e Source Comments Patient records contain information from all sites at [facility]. For routine questions regarding patient records, call [phone] during business hours, M-F 8:00 AM - 5:00 PM Central Time. Record requests for emergency care only can be directed to [phone] at any time.[facility] Allergies No known active allergies Medications lisinopriL 20 mg tablet Take 2 tablets by mouth daily. 09/09/2016 Active FLUoxetine (PROzac) 20 mg capsule Take 20 mg by mouth daily. 11/14/2023 Active allopurinoL (Zyloprim) 300 mg tablet Take 100 mg by mouth daily. 09/09/2016 Active metoprolol succinate (Toprol XL) 100 mg 24 hr tablet Take 100 mg by mouth daily. Do not crush or chew. Active hydroCHLOROthia zide (HydroDiuril) 25 mg tablet Take 25 mg by mouth daily. Active oxyCODONE (Roxicodone) 5 mg immediate release tabletIndicatio ns:Acute Pain Take 1 tablet (5 mg total) by mouth every 6 (six) hours as needed for severe pain or score 7-10 of 10 for up to 3 days Indication: Acute Pain. 12 tablet 12/22/2023 12/25/19 24 lidocaine (Lidoderm) 5 % adhesive patch,medicated Place 1 patch on the skin daily for 10 days. Apply to right lower chest/ribs. 10 patch 12/22/2023 01/01/20 24 Active Problems Problem Noted Date Diagnosed Date History Of Falling 12/29/2023 Encounters Date Type Department Care Team Description 01/17/2024 8:30 AM CDT External Outreach Division of Nephrology and Hypertension in [place], [place] [address] [place] [address] Taylor Nunez M.D., Ph.D. Hypertension Essential Primary (Primary Dx); Hyponatremia 12/29/2023 10:24 AM CDT - 12/29/2023 11:59 PM CDT Hospital Encounter Department of Radiology in [address] [address] Rolan Murodck M.D. Fracture Rib Multiple Closed Initial Right Discharge Disposition: Home or Self Care 12/29/2023 10:00 AM CDT Office Visit Department of Family Medicine, [facility], in [address] [address] Rolan Murdock M.D. Fracture Rib Multiple Closed Initial Right (Primary Dx) Discharge Disposition: Home or Self Care 12/22/2023 11:43 AM CDT - 12/22/2023 2:03 PM CDT Emergency [place] [facility] [address] [place] [phone] Koki Mar, LISANDRO, C.N.P., D.N.P. 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 Heart size normal. us Rolan Murdock M.D. [facility] DIAGNOSTIC IMAGING [facility] Final Result * (ABNORMAL) CBC with Differential, Blood (12/22/2023 [...] 12:27 PM CDT 12/22/2023 12:30 PM CDT us Koki Mar APRN, C.N.P., D.N.P. LAB BLOOD ADD-ON Final Result [facility] [address] [place] [address], [facility] [place] [address] [place] [address] * Lactate (12/22/2023 12:27 PM CDT) Pathologist [facility] Lactate, P 1.7 0.5 - 2.2 mmol/L 12/22/2023 12:47 PM CDT [facility] Blood (Blood, Venous) 12/22/2023 12:27 PM CDT 12/22/2023 12:30 PM CDT us Koki Mar APRN, C.N.P., D.N.P. LAB BLOOD NON ADD-ON Final Result [facility] [address] [place] [address], [place] [address], [facility] [place] [address] [place] [address], [place] [address] * (ABNORMAL) Basic Metabolic Panel (12/22/2023 12:27 PM CDT) [facility] Potassium, P 4.1 3.6 - 5.2 mmol/L [...] 12:27 PM CDT 12/22/2023 12:30 PM CDT us Koki Mar APRN, C.N.P., D.N.P. LAB BLOOD ADD-ON Final Result [facility] [address] [place] [address], [facility] [place] [address] [place] [phone] * SARS CoV-2, Influenza A/B, RSV, PCR [...] test using the Xpert Xpress SARS-CoV-2/Flu/RSV assay ([employer] performed on the Gene[employer]ge[employer] DX systems has received Emergency Use Authorization (EUA) by the U.S. Food and Drug Administration. Performance characteristics were verified by [facility] in a manner consistent with CLIA requirements. Fact sheets for this Emergency Use Authorization (EUA) assay can be found at the following links: For Healthcare Providers: https://www.fda.gov/media/749351/download For Patients: https://www.fda.gov/media/057007/download Specimen Source Swab, Nasopharynx 12/22/2023 12:30 PM CDT [facility] Swab (Nasopharynx) 12/22/2023 12:25 PM CDT 12/22/2023 12:30 PM CDT us Koki Mar APRN, C.N.P ., D.N.P. LAB MICROBIOLOGY - GENERAL ORDERABLES Final Result [facility] [address] [place] [address], [facility] [place] [address] [place] [address] from Last 3 Months Insurance * Guarantor: Joselito Diaz Account Type Relation to Patient Date of Phone Billing Address Personal/Family Self 1950 [id number] [place] [phone] MEDICARE [place] MEDICAID Care Teams Ecommerce Manager Relationship Specialty Start Date End Date Elsewhere, Pcp PCP - General Internal Medicine 12/22/23
--- OUTSIDE RECORDS SUMMARY | 2024-01-23 10:25 | XMS_ITS ---
Author Organization [facility] Address [address] [place] [address] Care Team Providers Care Swahili Teacher Name Role Phone Unavailable Unavailable Unavailable Surgery Details Not on file Complications Check Surgery Details section. Procedure Estimated Blood Loss Check Surgery Details section. Procedure Findings Check Surgery Details section. Procedure Specimens Taken Check Surgery Details section.
--- OUTSIDE RECORDS SUMMARY | 2024-01-23 10:25 | XMS_ITS | Encounter Summary ---
Author Organization [facility] Address [address] [place] [address] Care Team Providers Care Decaler Name Role Phone Elsewhere, Pcp Primary Care Provider Unavailabl e Reason for Referral * Outpatient (Routine) - Closed Specialty Diagnoses / Procedures Referred By Shelia jaramillo Referred To Contact Diagnoses Fracture Rib Multiple Closed Initial Right Procedures DX Chest AP or PA and Lateral 2 Views Rolan Murdock M.D. [address] [place] [phone] Phone: tel: fax: [facility] Region Referral ID Status Reason Start Date Expiration Date Visits Re quested Visits Authorized [id number] Closed 12/29/2023 12/28/2024 1 1 Reason for Visit * Outpatient (Routine) - Closed Specialty Diagnoses / Procedures Referred By Shelia jaramillo Referred To Contact Diagnoses Fracture Rib Multiple Closed Initial Right Procedures DX Chest AP or PA and Lateral 2 Views Rolan Murdock M.D. [address] [place] [phone] Phone: tel: fax: [facility] Region Referral ID Status Reason Start Date Expiration Date Visits Re quested Visits Authorized [id number] Closed 12/29/2023 12/28/2024 1 1 Encounter Details Date Type Department Care Team (Latest Contact Info) Description 12/29/2023 10:24 AM CDT - 12/29/2023 11:59 PM CDT Hospital Encounter Department of Radiology in [address] [place] [address] Rolan Murdock M.D. 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 09/09/2016 FLUoxetine (PROzac) 20 mg capsule Take 20 mg by mouth daily. 11/14/2023 hydroCHLOROthiazi de (HydroDiuril) 25 mg tablet Take 25 mg [...] consolidation. Heart size normal. Rolan [facility] Final Result documented in this encounter Visit Diagnoses Diagnosis Fracture Rib Multiple Closed Initial Right documented in this encounter Care Teams Decaler Relationship Specialty Start Date End Date Elsewhere, Pcp PCP - General Internal Medicine 12/22/23 documented as of this encounter
--- OUTSIDE RECORDS SUMMARY | 2024-01-23 10:25 | XMS_ITS | Referral Summary ---
Author Organization [facility] Address [address] [place] [address] Care Team Providers Care Preboarder Name Role Phone Elsewhere, Pcp Primary Care Provider Unavailabl e Source Comments Patient records contain information from all sites at [facility]. For routine questions regarding patient records, call [phone] during business hours, M-F 8:00 AM - 5:00 PM Central Time. Record requests for emergency care only can be directed to [phone] at any time.[facility] Encounters Date Type Department Care Team Description 01/17/2024 8:30 AM CDT External Outreach Division of Nephrology and Hypertension in [place], [place] [address] [place] [address] Taylor Nunez M.D., Ph.D. Hypertension Essential Primary (Primary Dx); Hyponatremia 12/29/2023 10:24 AM CDT - 12/29/2023 11:59 PM CDT Hospital Encounter Department of Radiology in [address] [phone] Rolan Murdock M.D. Fracture Rib Multiple Closed Initial Right Discharge Disposition: Home or Self Care 12/29/2023 10:00 AM CDT Office Visit Department of Family Medicine, [facility], in [address] [phone] Rolan Murdock M.D. Fracture Rib Multiple Closed Initial Right (Primary Dx) Discharge Disposition: Home or Self Care 12/22/2023 11:43 AM CDT - 12/22/2023 2:03 PM CDT Emergency [facility] [address] [place] [phone] Koki Mar APRN, C.N.P., D.N.P. 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 us Rolan Murdock M.D. [facility] DIAGNOSTIC IMAGING [facility] Final Result * (ABNORMAL) CBC with Differential, [...] C.N.P., D.N.P. LAB BLOOD ADD-ON Final Result [facility] [address] [place] [address], [place] [address], [employer] [facility] in [address] [address] * Lactate (12/22/2023 12:27 PM CDT) Lactate, P 1.7 0.5 - 2.2 mmol/L 12/22/2023 12:47 PM CDT [facility] Blood (Blood, Venous) 12/22/2023 12:27 PM CDT 12/22/2023 12:30 PM CDT us Koki Mar APRN, C.N.P., D.N.P. LAB BLOOD NON ADD-ON Final Result [facility] [address] [place] [address], [place] [address], [facility] in [address] [address] * (ABNORMAL) Basic Metabolic Panel (12/22/2023 12:27 [...] PM CDT Koki Mar APRN, C.N.P., D.N.P. LAB BLOOD ADD-ON Final Result [facility] [address] [facility] [place] [address], [facility] [place] [address] [facility] [place] [address] * SARS CoV-2, Influenza A/B, RSV, PCR [...] test using the Xpert Xpress SARS-CoV-2/Flu/RSV assay ([employer] performed on the Transactis systems has received Emergency Use Authorization (EUA) by the U.S. Food and Drug Administration. Performance characteristics were verified by [facility] in a manner consistent with CLIA requirements. Fact sheets for this Emergency Use Authorization (EUA) assay can be found at the following links: For Healthcare Providers: https://www.fda.gov/media/991591/download For Patients: https://www.fda.gov/media/657920/download Specimen Source Swab, Nasopharynx 12/22/2023 12:30 PM CDT [facility] Swab (Nasopharynx) 12/22/2023 12:25 PM CDT 12/22/2023 12:30 PM CDT us Koki Mar APRN, C.N.P ., D.N.P. LAB MICROBIOLOGY - GENERAL ORDERABLES Final Result [facility] [address] [place] [address], [facility] [place] [address] [place] [address] from Last 3 Months Insurance * Guarantor: Joselito Diaz Account Type Relation to Patient Date of Phone Billing Address Personal/Family Self [address] [place] [phone] MEDICARE [place] MEDICAID Care Teams Preboarder Relationship Specialty Start Date End Date Elsewhere, Pcp PCP - General Internal Medicine 12/22/23
--- OUTSIDE RECORDS SUMMARY | 2024-01-23 10:25 | XMS_ITS | Encounter Summary ---
Author Organization [facility] Address [address] [place] [address] Care Team Providers Care Wildlife Management Professor Name Role Phone Elsewhere, Pcp Primary Care Provider Unavailabl e Reason for Referral * Outpatient (Routine) - Closed Specialty Diagnoses / Procedures Referred By Shelia jaramillo Referred To Contact Diagnoses Fracture Rib Multiple Closed Initial Right Procedures DX Chest AP or PA and Lateral 2 Views Rolan Murdock M.D. [address] [place] [phone] Phone: tel: fax: [facility] Region Referral ID Status Reason Start Date Expiration Date Visits Re quested Visits Authorized [id number] Closed 12/29/2023 12/28/2024 1 1 Reason for Visit * Reason Comments Post Ed Visit Follow-up * Outpatient (Routine) - Closed Specialty Diagnoses / Procedures Referred By Shelia jaramillo Referred To Contact Emergency Medicine Diagnoses Fracture Rib Multiple Closed Initial Right OKoki Golden APRN, C.N.P., D.N.P. [address] [place] [address] Phone: tel: fax: [facility] Region Referral ID Status Reason Start Date Expiration Date Visits Re quested Visits Authorized [id number] Closed 12/22/2023 06/22/2025 1 1 Encounter Details Date Type Department Care Team ([facility] st Contact Info) Description 12/29/2023 10:00 AM CDT Office Visit Department of Family Medicine, [facility], in [place], [place] [address] [place] [phone] Rolan Murdock M.D. 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 Rolan Murdock M.D. [facility] Final Result documented in this encounter Visit Diagnoses Diagnosis Fracture Rib Multiple Closed Initial Right- Primary Fracture Rib Multiple Closed Initial Right documented in this encounter Care Teams Wildlife Management Professor Relationship Specialty Start Date End Date Elsewhere, Pcp PCP - General Internal Medicine 12/22/23 documented as of this encounter
--- OUTSIDE RECORDS SUMMARY | 2024-01-23 10:25 | XMS_ITS | Patient Health Record ---
Author Organization [facility] Address [address] [place] [address] Care Team Providers Care Media Supervisor Name Role Phone Kathia Harrison Unavailable [phone] Smita, Alicia Unavailable [phone] ALLERGIES Allergen (clinical drug ingredient) Drug/Non Drug Allergy documented on EMR Reaction Allergy Type Onset Date Status amlodipine Amlodipine Besylate LE Swelling Drug Allergy Active RESULTS Component Value Reference Range Notes LIPID PANEL Reviewed date:02/18/2023 02:07:22 PM Interpretation: Performing Lab:[facility], [facility] Itcy[address] [facility], [place] [facility] HospitalUgaqKX[address] Keon Aparicio Notes/Report: 0 0 0 0 CHOLESTEROL, TOTAL 141 <200 mg/dL HDL CHOLESTEROL 68 > OR = 40 mg/dL TRIGLYCERIDES 91 <150 mg/dL LDL-CHOLESTEROL 56 Reference range: <100 Desirable range <100 mg/dL for primary prevention; <70 mg/dL for patients with CHD or diabetic patients with > or = 2 CHD risk factors. LDL-C is now calculated using the Kartik-Peri calculation, which is a validated novel method providing better accuracy than the Friedewald equation in the estimation of LDL-C. Kartik VALLADARES et al. EMANI. 2013;310(19): 7390-4634 (http://education.[employer]com/faq/LXK007) CHOL/HDLC RATIO 2.1 <5.0 (calc) NON HDL CHOLESTEROL 73 <130 mg/dL (calc) For patients with diabetes plus 1 major ASCVD risk factor, treating to a non-HDL-C goal of <100 mg/dL (LDL-C of <70 mg/dL) is considered a therapeutic option. COMPREHENSIVE METABOLIC PANE L Reviewed date:02/18/2023 02:07:22 PM Interpretation: Performing Lab:[facility] [facility] Keon Aparicio Notes/Report: 0 0 0 0 GLUCOSE 207 65-99 mg/dL Fasting reference interval For someone without known diabetes, a glucose value >125 mg/dL indicates that they may have diabetes and this should be confirmed with a follow-up test. UREA NITROGEN (BUN) 10 7-25 mg/dL CREATININE 1.38 0.70-1.28 mg/dL EGFR 55 > OR = 60 mL/min/1.73m2 BUN/CREATININE RATIO 7 6-22 (calc) SODIUM 127 135-146 mmol/L POTASSIUM 4.6 3.5-5.3 mmol/L CHLORIDE 92 98-110 mmol/L CARBON DIOXIDE 27 20-32 mmol/L CALCIUM 9.8 8.6-10.3 mg/dL PROTEIN, TOTAL 8.1 6.1-8.1 g/dL ALBUMIN 4.2 3.6-5.1 g/dL GLOBULIN 3.9 1.9-3.7 g/dL (calc) ALBUMIN/GLOBULIN RATIO 1.1 1.0-2.5 (calc) BILIRUBIN, TOTAL 0.8 0.2-1.2 mg/dL ALKALINE PHOSPHATASE 72 35-144 U/L AST 25 10-35 U/L ALT 20 9-46 U/L CBC (INCLUDES DIFF/PLT) Reviewed date:02/18/2023 02:07:22 PM Interpretation: Performing Lab:[facility]13[address] [facility] CenteriTaggitTrent[facility], [place] [facility] HospitalPhbbJK[address] Keon Aparicio Notes/Report: 0 0 0 0 WHITE BLOOD CELL COUNT 10.2 3.8-10.8 Thousand/ uL RED BLOOD CELL COUNT 4.18 4.20-5.80 Million/uL HEMOGLOBIN 14.2 13.2-17.1 g/dL HEMATOCRIT 39.2 38.5-50.0 % MCV 93.8 80.0-100.0 fL MCH 34.0 27.0-33.0 pg MCHC 36.2 32.0-36.0 g/dL RDW 11.9 11.0-15.0 % PLATELET COUNT 353 140-400 Thousand/uL MPV 8.8 7.5-12.5 fL ABSOLUTE NEUTROPHILS [phone] cells/uL ABSOLUTE LYMPHOCYTES 9024 783-2720 cells/uL ABSOLUTE MONOCYTES 1000 200-950 cells/uL ABSOLUTE EOSINOPHILS 61 15-500 cells/uL ABSOLUTE BASOPHILS 92 0-200 cells/uL NEUTROPHILS 70.7 LYMPHOCYTES 18.0 MONOCYTES 9.8 EOSINOPHILS 0.6 BASOPHILS 0.9 HEMOGLOBIN A1c Reviewed date:02/18/2023 02:08:16 PM Interpretation: Performing Lab:[facility] Qumu-[employer] Plwt4974 [facility]ste360[facility], [place] [facility] HospitalPuqkWS[address] Keon Aparicio Notes/Report: 0 0 0 0 HEMOGLOBIN A1c 5.9 <5.7 % of total Hgb For someone without known diabetes, a hemoglobin A1c value between 5.7% and 6.4% is consistent with prediabetes and should be confirmed with a follow-up test. For someone with known diabetes, a value <7% indicates that their diabetes is well controlled. A1c targets should be individualized based on duration of diabetes, age, comorbid conditions, and other considerations. This assay result is consistent with an increased risk of diabetes. Currently, no consensus exists regarding use of hemoglobin A1c for diagnosis of diabetes for children. PSA (FREE AND TOTAL) Reviewed date:02/19/2023 09:29:57 AM Interpretation: Performing Lab:[facility]-[employer] Tays4271 [facility]aceuticalste360[facility], [facility] ClinicMteoZA[address] Keon Aparicio Notes/Report: 0 PSA, TOTAL 0.5 < OR = 4.0 ng/mL PSA, FREE 0.2 PSA, % FREE 40 >25 % (calc) PSA(ng/mL) Free PSA(%) Estimated(x) Probability of Cancer(as%) 0-2.5 (*) Approx. 1 2.6-4.0(1) 0-27(2) 24(3) 4.1-10(4) 0-10 56 11-15 28 16-20 20 21-25 16 >or =26 8 >10(+) N/A >50 References:(1)Ro et al.:Urology 60: 469-474 (2002) (2)Ro et al.:J.Urol 168: 922-925 (2002) Free PSA(%) Sensitivity(%) Specificity(%) < or = 25 85 19 < or = 30 93 9 (3)Catalona et al.:EMANI 277: 2486-0794 (1996) (4)Catalona et al.:EMANI 279: 5217-3679 (1997) (x)These estimates vary with age, ethnicity, family history and PATTI results. (*)The diagnostic usefulness of % Free PSA has not been established in patients with total PSA below 2.6 ng/mL (+)In men with PSA above 10 ng/mL, prostate cancer risk is determined by total PSA alone. The Total PSA value from this assay system is standardized against the equimolar PSA standard. The test result will be approximately 20% higher when compared to the WHO-standardized Total PSA (Siemens assay). Comparison of serial PSA results should be interpreted with this fact in mind. PSA was performed using the Margret Wayne Immunoassay method. Values obtained from different assay methods cannot be used interchangeably. PSA levels, regardless of value, should not be interpreted as absolute evidence of the presence or absence of disease. RENAL FUNCTION PANEL Reviewed date:03/23/2023 09:21:33 AM Interpretation: Performing Lab:[facility] Qumu-[employer] Bnjr1878 [facility], [place] [facility] HospitalNwtvTP[address] Keon Aparicio Notes/Report: 0 GLUCOSE 134 65-99 mg/dL Fasting reference interval For someone without known diabetes, a glucose value >125 mg/dL indicates that they may have diabetes and this should be confirmed with a follow-up test. UREA NITROGEN (BUN) 13 7-25 mg/dL CREATININE 1.54 0.70-1.28 mg/dL EGFR 48 > OR = 60 mL/min/1.73m2 BUN/CREATININE RATIO 8 6-22 (calc) SODIUM 125 135-146 mmol/L POTASSIUM 4.7 3.5-5.3 mmol/L CHLORIDE 86 98-110 mmol/L CARBON DIOXIDE 30 20-32 mmol/L CALCIUM 10.1 8.6-10.3 mg/dL PHOSPHATE ( PHOSPHORUS) 4.1 2.1-4.3 mg/dL ALBUMIN 4.3 3.6-5.1 g/dL LIPID PANEL Reviewed date:07/14/2023 03:30:08 PM Interpretation: Performing Lab:[facility] Ki[employer]he13[address] [employer], ElixentNaluQL[address] Keon Aparicio Notes/Report: 0 0 0 0 0 CHOLESTEROL, TOTAL 162 <200 mg/dL HDL CHOLESTEROL 65 > OR = 40 mg/dL TRIGLYCERIDES 90 <150 mg/dL LDL-CHOLESTEROL 80 Reference range: <100 Desirable range <100 mg/dL for primary prevention; <70 mg/dL for patients with CHD or diabetic patients with > or = 2 CHD risk factors. LDL-C is now calculated using the Kartik-Whitt calculation, which is a validated novel method providing better accuracy than the Friedewald equation in the estimation of LDL-C. Kartik VALLADARES et al. EMANI. 2013;310(03): 4690-8483 (http://education.[employer]TELA Bio/faq/ECP717) CHOL/HDLC RATIO 2.5 <5.0 (calc) NON HDL CHOLESTEROL 97 <130 mg/dL (calc) For patients with diabetes plus 1 major ASCVD risk factor, treating to a non-HDL-C goal of <100 mg/dL (LDL-C of <70 mg/dL) is considered a therapeutic option. BASIC METABOLIC PANEL Reviewed date:07/14/2023 03:30:09 PM Interpretation: Performing Lab:[facility] KiwiT[employer]he1355 [employer], Opt[employer] BlueDbxoPQ[address] Keon Aparicio Notes/Report: 0 0 0 0 0 GLUCOSE 139 65-99 mg/dL Fasting reference interval For someone without known diabetes, a glucose value >125 mg/dL indicates that they may have diabetes and this should be confirmed with a follow-up test. UREA NITROGEN (BUN) 11 7-25 mg/dL CREATININE 1.42 0.70-1.28 mg/dL EGFR 53 > OR = 60 mL/min/1.73m2 BUN/CREATININE RATIO 8 6-22 (calc) SODIUM 124 135-146 mmol/L POTASSIUM 4.6 3.5-5.3 mmol/L CHLORIDE 86 98-110 mmol/L CARBON DIOXIDE 29 20-32 mmol/L CALCIUM 9.9 8.6-10.3 mg/dL HEPATIC FUNCTION PANEL Reviewed date:07/14/2023 03:30:09 PM Interpretation: Performing Lab:[facility] KiwiTeche13[address] [employer], Opt[employer] BlueNdohLR[address] Keon Aparicio Notes/Report: 0 0 0 0 0 PROTEIN, TOTAL 8.6 6.1-8.1 g/dL ALBUMIN 4.3 3.6-5.1 g/dL GLOBULIN 4.3 1.9-3.7 g/dL (calc) ALBUMIN/GLOBULIN RATIO 1.0 1.0-2.5 (calc) BILIRUBIN, TOTAL 1.1 0.2-1.2 mg/dL BILIRUBIN, DIRECT 0.2 < OR = 0.2 mg/dL BILIRUBIN, INDIRECT 0.9 0.2-1.2 mg/dL (calc) ALKALINE PHOSPHATASE 64 35-144 U/L AST 24 10-35 U/L ALT 18 9-46 U/L CBC (H/H, RBC, INDICES, WBC, PLT) Reviewed date:07/14/2023 03:30:09 PM Interpretation: Performing Lab:[facility] Qumu-El[facility]ente13[address] [employer], [place] [facility] HospitalFsqgXK[address] Keon Aparicio Notes/Report: 0 0 0 0 0 WHITE BLOOD CELL COUNT 11.2 3.8-10.8 Thousand/ uL RED BLOOD CELL COUNT 4.31 4.20-5.80 Million/uL HEMOGLOBIN 14.1 13.2-17.1 g/dL HEMATOCRIT 39.7 38.5-50.0 % MCV 92.1 80.0-100.0 fL MCH 32.7 27.0-33.0 pg MCHC 35.5 32.0-36.0 g/dL RDW 12.0 11.0-15.0 % PLATELET COUNT 333 140-400 Thousand/uL MPV 8.3 7.5-12.5 fL HEMOGLOBIN A1c Reviewed date:07/14/2023 03:30:10 PM Interpretation: Performing Lab:[facility] Qumu-[employer] Sjwf8000 Thar PharmaceuticalsteDrifty, [place] JqtdAQ[address] Keon Aparicio Notes/Report: 0 0 0 0 0 HEMOGLOBIN A1c 6.3 <5.7 % of total Hgb For someone without known diabetes, a hemoglobin A1c value between 5.7% and 6.4% is consistent with prediabetes and should be confirmed with a follow-up test. For someone with known diabetes, a value <7% indicates that their diabetes is well controlled. A1c targets should be individualized based on duration of diabetes, age, comorbid conditions, and other considerations. This assay result is consistent with an increased risk of diabetes. Currently, no consensus exists regarding use of hemoglobin A1c for diagnosis of diabetes for children. This test was performed on the Farrah richelle c503 platform. Effective 06/15/23, a change in test platforms from the Aguilar Organic Chemistry Professor to the Farrah richelle c503 may have shifted HbA1c results compared to historical results. Based on laboratory validation testing conducted at [facility], the Farrah platform relative to the Aguilar platform had an average increase in HbA1c value of < or = 0.3%. This difference is within accepted variability established by the National Glycohemoglobin Standardization Program. Note that not all individuals will have had a shift in their results and direct comparisons between historical and current results for testing conducted on different platforms is not recommended. BASIC METABOLIC PANEL Reviewed date:08/15/2023 11:02:12 AM Interpretation: Performing Lab:[facility] Qumu-Elixente13[address] [employer]steD[employer], Optimal BlueIjybYX[address] Keon Aparicio Notes/Report: 0 GLUCOSE 144 65-99 mg/dL Fasting reference interval For someone without known diabetes, a glucose value >125 mg/dL indicates that they may have diabetes and this should be confirmed with a follow-up test. UREA NITROGEN (BUN) 15 7-25 mg/dL CREATININE 1.43 0.70-1.28 mg/dL EGFR 52 > OR = 60 mL/min/1.73m2 BUN/CREATININE RATIO 10 6-22 (calc) SODIUM 121 135-146 mmol/L POTASSIUM 4.3 3.5-5.3 mmol/L CHLORIDE 84 98-110 mmol/L Verified by re peat analysis. CARBON DIOXIDE 27 20-32 mmol/L CALCIUM 9.8 8.6-10.3 mg/dL RENAL FUNCTION PANEL Reviewed date:10/20/2023 12:01:29 PM Interpretation: Performing Lab:[facility] Qumu-Elixente1355 Thar [employer]stel [employer] Optimal BlueGoydWC[address] Keon Aparicio Notes/Report: 0 0 GLUCOSE 137 65-99 mg/dL Fasting reference interval For someone without known diabetes, a glucose value >125 mg/dL indicates that they may have diabetes and this should be confirmed with a follow-up test. UREA NITROGEN (BUN) 16 7-25 mg/dL CREATININE 1.45 0.70-1.28 mg/dL EGFR 52 > OR = 60 mL/min/1.73m2 BUN/CREATININE RATIO 11 6-22 (calc) SODIUM 121 135-146 mmol/L POTASSIUM 4.7 3.5-5.3 mmol/L CHLORIDE 81 98-110 mmol/L Verified by re peat analysis. CARBON DIOXIDE 32 20-32 mmol/L CALCIUM 9.7 8.6-10.3 mg/dL PHOSPHATE ( PHOSPHORUS) 4.1 2.1-4.3 mg/dL ALBUMIN 4.1 3.6-5.1 g/dL URINALYSIS, COMPLETE W/REFLE X TO CULTURE Reviewed date:10/20/2023 11:58:23 AM Interpretation: Performing Lab:[facility] Qumu-[facility]13[address] [employer] Keon Aparicio Notes/Report: 0 0 COLOR YELLOW YELLOW APPEARANCE CLEAR CLEAR SPECIFIC GRAVITY 1.005 1.001-1.035 PH 7.5 5.0-8.0 GLUCOSE NEGATIVE NEGATIVE BILIRUBIN NEGATIVE NEGATIVE KETONES NEGATIVE NEGATIVE OCCULT BLOOD NEGATIVE NEGATIVE PROTEIN NEGATIVE NEGATIVE NITRITE NEGATIVE NEGATIVE LEUKOCYTE ESTERASE NEGATIVE NEGATIVE WBC NONE SEEN < OR = 5 /HPF RBC NONE SEEN < OR = 2 /HPF SQUAMOUS EPITHELIAL CELLS NONE SEEN < OR = 5 /HPF BACTERIA NONE SEEN NONE SEEN /HPF HYALINE CAST NONE SEEN NONE SEEN /LPF NOTE This urine was analyzed for the presence of WBC, RBC, bacteria, casts, and other formed elements. Only those elements seen were reported. REFLEXIVE URINE CULTURE Reviewed date:10/20/2023 12:01:42 PM Interpretation: Performing Lab:[facility] Qumu-Elixente13[address] Eat LocalL[address] Keon Aparicio Notes/Report: 0 0 REFLEXIVE URINE CULTURE NO C ULTURE INDICATED REASON FOR REFERRAL Reason Eval and treat Diagnosis 1 Abnormal renal funct ion test (R94.4) Referral Organization [facility] Referring Provider First Name Alicia Referring Provider Last Name Smita Referring Provider Speciality [facility] Referred Provider [facility] Referred Provider Specialty Nephrology General Notes Referral is approved for consultation, any lab testing, diagnostic imaging, procedures/surgical intervention, and other therapeutics as needed. Secondary referrals as indicated. Please contact patient to schedule. Clinical Notes Joleen Crawford 10/10 10:16:53 AM >Pt called, would like referral sent to [facility] instead. Referral updated and sent. Referral Priority Routine MEDICATIONS Medication SIG (Take, Route, Frequency, Duration) Notes Start Date End Date Status FLUoxetine HCl 20 MG 1 capsule in the morning Orally Once a day for 90 day(s) 11/14/2023 Active Allopurinol 100 MG 1 tablet Orally Once a day for 90 days Active hydroCHLOROthiazide 25 MG 1/2 tablet in the morning Orally Once a day for 180 days Note 1/2 tablet 02/24/2023 07/07/2024 Active Metoprolol Succinate ER 100 MG 1.5 tablet Orally Once a day Active Lisinopril 40 MG 1 tablet Orally Once a day for 90 days . Active IMMUNIZATIONS Vaccine Route Administration Date Status Comme nts COVID-19 (Bivalent 12+) Pfizer IM Intramuscular 04/06/2022 Administered COVID-19 Pfizer BioNTech Vaccine 12+ IM Intramuscular 03/12/2021 Administered Influenza quadrivalent (FLUARIX 6mos and older) IM Intramuscular 03/02/2017 Administered Influenza quadrivalent (FLUARIX 6mos and older) IM Intramuscular 01/17/2018 Administered Influenza quadrivalent (FLUARIX 6mos and older) Unknown 02/05/2019 Administered Influenza quadrivalent (FLUARIX 6mos and older) Unknown 02/26/2020 Administered Influenza quadrivalent (FLUARIX 6mos and older) IM Intramuscular 03/12/2021 Administered Influenza quadrivalent (FLUZONE HD 65+) IM Intramuscular 04/06/2022 Administered Influenza quadrivalent (FLUZONE HD 65+) IM Intramuscular 02/17/2023 Administered Pneumoccocal conjugate PCV13 (PREVNAR 13) IM Intramuscular 11/01/2017 Administered Pneumococcal Polyvalent-23 ([id number]) IM Intramuscular 01/01/2020 Administered Tdap (BOOSTRIX) IM Intramuscular 08/18/2022 Administered Zoster Vaccine (SHINGRIX) IM Intramuscular 01/01/2020 Admi nistered Zoster Vaccine (SHINGRIX) Unknown 02/26/2020 Administer ed SOCIAL HISTORY Tobacco Use: Social History Observation Description Date Details (start date - stop date) Former Smoker NA - NA Sex Assigned At : Social History Observation Description Sex Assigned At Unknown Tobacco Use/Smoking Question Answer Notes Are you a former smoker How long has it been since you last smoked? > 10 years Alcohol Screen (Audit-C) Question Answer Notes Did you have a drink contain ing alcohol in the past year? Yes How often did you have a dri nk containing alcohol in the past year? 2 to 3 times a week (3 points) How many drinks did you have on a typical day when you were drinking in the past year? 3 or 4 drinks (1 point) How often did you have 6 or more drinks on one occasion in the past year? Less than monthly (1 point) Points 5 Interpretation Positive Sexual History Question Answer Notes Had sex in the past 12 months (vaginal, oral, or anal)? Yes with Women only Use protection? No Have you ever had a Sexually transmitted disease ? No PROBLEMS Problem Type ICD Code Onset Dates Problem Status W/U Status Risk SNOMED Code Notes Problem Impaired fasting glucose (R73.01) Active confirmed 105200105 Problem Erectile dysfunction, unspecified erectile dysfunction type (N52.9) Active confirmed Problem Essential hypertension (I10) Active confirmed 46595283 Problem Anxiety (F41.9) Active confirmed Anxiet y (80323689) Problem Depression, unspecified depression type (F32.9) Active confirmed 34713489 Problem MIGUEL (obstructive sleep apnea) (G47.33) Active confirmed Obstructive sleep apnea syndrome (63501255) Problem White coat syndrome with hypertension (I10) Active confirmed Essential hypertension (71791333) Problem Gout, unspecified cause, unspecified chronicity, unspecified site (M10.9) Active confirmed 41005456 Problem Alcohol use (Z72.89) Active confirmed 369337 VITAL SIGNS Heart Rate 64 /min 11/02/2023 Temperature 97.7 degrees Fahrenheit 11/02/2023 Respiratory Rate 17 /min 11/02/2023 Oximetry 99 % 11/02/2023 Blood pressure diastolic 67 mm Hg 11/02/2023 Height 69 in 11/02/2023 Blood pressure systolic 148 mm Hg 11/02/2023 Weight 170 lbs 11/02/2023 BMI 25.1 kg/m2 11/02/2023 Encounters Encounter Location Date Provider Diagnosis [address] [address] 02/17/2023 Alicia Smita Essential hypertensi on I10 ; Prostate cancer screening Z12.5 ; White coat syndrome with hypertension I10 ; Gout, unspecified cause, unspecified chronicity, unspecified site M10.9 and Influenza vaccine needed Z23 [address] [address] 03/22/[address] [address] 07/13/2023 Kathia Harrison Essential hypertensi on I10 ; White coat syndrome with hypertension I10 ; Alcohol use Z72.89 ; Hyponatremia E87.1 and Gout, unspecified cause, unspecified chronicity, unspecified site M10.[address] [address] 08/11/2023 Alicia Smita Essential hypertensi on I10 and Elevated serum creatinine R79.[address] [address] 09/02/[address] [address] 09/09/[address] [address] 10/19/[address] [address] 11/02/2023 Alicia [facility] Essential hypertensi on I10 ; Syncope, unspecified syncope type R55 ; Depression, unspecified depression type F32.9 and Anxiety F41.[address] [address] 02/17/[address] [address] 02/18/[address] [place] [address] 03/23/[address] [address] 05/23/2023 Alicia Smita Essential hypertensi on I10 [address] [address] 06/13/2023 Kathia Harrison Essential hypertensi on I10 [address] [address] 07/14/2023 Kathia Harrison Essential hypertensi on I10 and Elevated serum creatinine R79.[address] [address] 08/15/[address] [address] 09/02/2023 Alicia Smita [address] [place] [address] 10/05/2023 Alicia Smita Essential hypertensi on I10 [address] [place] [address] 10/10/2023 Alicia Smita Essential hypertensi on I10 [address] [place] [address] 10/18/2023 Alicia Smita [address] [place] [address] 10/19/2023 Alicia Smita [address] [place] [address] 10/20/2023 Alicia Smita [address] [place] [address] 11/01/2023 Alicia Smita Essential hypertensi on I10 [address] [place] [address] 11/02/2023 Alicia Smita [address] [place] [address] 11/10/2023 Alicia Smita [address] [place] [address] 11/14/2023 Alicia Smita Depression, unspecified depression type F32.[address] [place] [address] 12/07/2023 Alicia Smita Essential hypertensi on I10 and Gout, unspecified cause, unspecified chronicity, unspecified site M10.[address] [place] [address] 12/14/[address] [place] [address] 01/09/2024 Alicia Smita Essential hypertensi on I10 ASSESSMENTS Encounter Date Diagnosis Assessment Notes Treatment Notes Treatment Clinical Notes 11/02/2023 Essential hypertension (ICD-10 - I10) Improved. Continue current prescribed medications. We will call him in 10-18 for current BP readings. He is to call 911 or present to the nearest ER with any severe DAVIS, lightheadedness, dizziness, CP, or SOB. Continue to refrain from ETOH intake. 11/02/2023 Syncope, unspecified syncope type (ICD-10 - R55) Monitor. See above. Strongly recommend to be seen in ER if he has another syncopal episode. Possibly from his sudden stop in ETOH intake. Assure to remain hydrated, monitor pressures. 11/14/2023 Depression, unspecified depression type (ICD-10 - F32.9) 12/07/2023 Essential hypertension (ICD-10 - I10) 01/09/2024 Essential hypertension (ICD-10 - I10) 02/17/2023 Essential hypertension (ICD-10 - I10) Patient is fasting today so we will draw a routine labs and call him with results when they have been completed. It is noted that his blood pressure remains elevated here in the office as usual. I am going to have him check his blood pressures daily and record until February 22. On Tuesday my nurse will call him for his blood pressure readings. He is aware that we may need to adjust his blood pressure medications and he does verbalize understanding and agrees with this plan of care. 02/17/2023 Prostate cancer screening (ICD-10 - Z12.5) Routine PSA screening today we will call him with results when they have been completed. 05/23/2023 Essential hypertension (ICD-10 - I10) 06/13/2023 Essential hypertension (ICD-10 - I10) 07/13/2023 Essential hypertension (ICD-10 - I10) BP in the office is quite elevated, but did come down on repeat. His home readings have actually been fairly decent. After he left the office I did notice that his lisinopril dosing is at 40 mg twice daily, so we will wait to see what his labs, but will likely adjust down to 40 mg. He was previously on amlodipine and did have swelling so would not retrial that. Do not see that he is ever been on losartan for any of the other alpha 1 blockers. 07/13/2023 White coat syndrome with hypertension (ICD-10 - I10) 07/14/2023 Essential hypertension (ICD-10 - I10) 07/14/2023 Elevated serum creatinine (ICD-10 - R79.89) 08/11/2023 Essential hypertension (ICD-10 - I10) Blood pressure remains high here in the office even on manual recheck. Patient has just taken his blood medications prior to coming into the clinic. I would like him to continue monitoring his blood pressures and if he does note that his systolic reading is greater than 140 consistently and if his diastolic reading is greater than 90 consistently, he is to reach out to us at the clinic. Patient is very compliant with his medications and his blood pressure readings so I do feel comfortable having him follow-up in 3 months, sooner if needed. We will draw his basic metabolic today as [place] is heading [place] I do not want him to have to come back to the clinic which is 3 hours away just for a lab draw. However he is aware if his labs are abnormal he will need to come in sooner than 3 months for further evaluation. At this time he is to continue his current medication regimen. He is to continue monitoring his blood pressures and recording them daily at home. He is aware if he has any severe headache, vision changes, chest pain or shortness of breath he is to call 911 to present to the nearest ER. Patient verbalizes understanding and does agree with this plan of care. 08/11/2023 Elevated serum creatinine (ICD-10 - R79.89) We will obtain his basic metabolic today and call him with his results tomorrow. At that time if he does need to come in sooner to be evaluated then the schedule 3 month appointment he is willing to do such. 10/05/2023 Essential hypertension (ICD-10 - I10) 10/10/2023 Essential hypertension (ICD-10 - I10) 11/01/2023 Essential hypertension (ICD-10 - I10) 02/17/2023 White coat syndrome with hypertension (ICD-10 - I10) Continues to have elevated pressures when in the clinic. Please see above for essential hypertension plan of care. 12/07/2023 Gout, unspecified cause, unspecified chronicity, unspecified site (ICD-10 - M10.9) 07/13/2023 Alcohol use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
--- OUTSIDE RECORDS SUMMARY | 2024-01-23 10:25 | XMS_ITS | Encounter Summary ---
Author Organization [facility] Address [address] [place] [address] Care Team Providers Care Technical Support Manager Name Role Phone Elsewhere, Pcp Primary Care Provider Unavailabl e Reason for Visit * Appointment Request (Routine) - Closed Specialty Diagnoses / Procedures Referred By Shelia jaramillo Referred To Contact Nephrology and Hypertension Florin Enriquez M.D. Phone: tel: fax: Referral ID Status Reason Start Date Expiration Date Visits Re quested Visits Authorized [id number] Closed 12/23/2023 12/22/2024 1 1 Encounter Details Date Type Department Care Team (Latest Contact Info) Description 01/17/2024 8:30 AM CDT External Outreach Division of Nephrology and Hypertension in [place], [place] [address] [place] [address] Taylor Nunez M.D., Ph.D. 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 - 01/17/2024 8:30 AM CDT Referring Provider: Florin Enriquez M.D. SUBJECTIVE CHIEF COMPLAINT/REASON FOR VISIT Hypertension management, hyponatremia. HISTORY OF PRESENT ILLNESS Mr. Diaz is a 73-year-old man with a longstanding history of hypertension diagnosed in his mid 30s. Hypertension runs in his family on his mother's side. He has also been diagnosed with anxiety about 5 months ago and has been started on SSRIs. This has been changed recently and he has been on fluoxetine 20 mg daily. His blood pressure is managed with lisinopril 40 mg daily and metoprolol ER 150 mg daily. Patient's blood pressure has been difficult to control; however, he noticed that after starting SSRIs his blood pressure has been doing much better. He also has white coat effect during doctors visits. He has been checking his blood pressure regularly at home and he noticed that his blood pressure has been improving, basically with blood pressures in the 130s to 140s over 80s. He follows a regular diet. He also has chronic hyponatremia, partially associated with alcohol intake. Patient has not noticed any lightheadedness, dizziness, vision changes, diaphoresis, chest pain, difficulty breathing, or edema. Patient has not noticed any changes in urinary habits. No hesitancy tourinate, no difficulty to urinate. Past Medical History: Diagnosis Date Hypertension NOS Past Surgical History: Procedure Laterality Date OTHER CONVERTED SHX (SEE COMMENT) N/A 12/11/1991 >Partial hemilaminectomy, left fifth lumbar. Foraminotomy over left first sacral nerve root. No Known Allergies Social History Tobacco Use Smoking status: Former Smokeless tobacco: Never Substance Use Topics Alcohol use: Not on file REVIEW OF SYSTEMS All other systems were reviewed and are negative, rest as per HPI. OBJECTIVE PHYSICAL EXAMINATION General: No acute distress, breathing comfortably. Heart: Regular rate and rhythm. No murmurs, rubs or gallops. Respiratory: Regular inspiratory effort. No wheezes, no rhonchi. Abdomen: Soft, not tender, not distended. Present bowel sounds. Extremities: Full range of motion. Normal gait. No edema in lower extremities Neuro: No focal deficits. Alert and oriented X 4. Skin: Warm. No rashes. Psych: Answers questions appropriately. No signs of anxiety or depression noted. DIAGNOSTICS Labs: I have reviewed available labs in detail with patient. ASSESSMENT / PLAN #1 Hypertension #2 Hyponatremia Patient was referred to Nephrology for evaluation of his hypertension. I will order workup for secondary causes of hypertension. I have asked the patient to check his blood pressure regularly at homeand he will bring logs of his blood pressure readings to his next visit. I will order a renal ultrasound with renal artery Doppler to screen for renal artery stenosis. I have ordered aldosterone and renin as well. BP goals are systolic readings between 100-130 mmHg and diastolic readings between 60-80 mmHg. I have recommended patient to check BP regularly at home. A BP home monitor device can be selected from the [place] Blood Pressure Validated Device Listing (VDL???) at https://www.validatebp.org. I have recommended patient to keep a record of blood pressure readings. If BP is still not at goal, medications should be adjusted. I have discussed extensively with patient about risk of developing CKD progression if BP is not well controlled. I recommended patient to follow a low salt diet and to exercise regularly. Regarding his hyponatremia, it seems to be chronic; however, I am concerned about the use of SSRIs in the setting of hyponatremia. I have asked patient to limit his fluid intake (including his alcohol intake) to no more than 50 ounces of fluid per day. This includes all types of fluids: Water, juice, tea, soups, milk, and alcohol. We will recheck labs in 1 month to monitor his sodium level and reassess if a change on his medications to avoid hyponatremia is required. He has been doing so well on SSRIs that hopefully we will not need to change it due to chronic hyponatremia. All questions were answered. Return visit in 1 month. Paula Toth M.D., Ph.D. CT CT Job ID: [id number] Addendum: Patient's hyponatremia is hypotonic, hypo-osmolar. Kidney function is normal Major component from urine osmolality and urine electrolytes representing SIADH, syndrome of inappropriate ADH. Recommendations for Sodium Management: Oral fluid restriction 1.5-2 L/day Improved nutrition with higher solute intake, increased amount of protein intake Avoid alcohol consumption No salt restriction in diet (regular diet) documented in this encounter Plan of Treatment Not on file documented as of this encounter Visit Diagnoses Diagnosis Hypertension Essential Primary- Primary Hyponatremia documented in this encounter Care Teams Technical Support Manager Relationship Specialty Start Date End Date Elsewhere, Pcp PCP - General Internal Medicine 12/22/23 documented as of this encounter
--- OUTSIDE RECORDS SUMMARY | 2024-01-23 10:25 | XMS_ITS ---
Author Organization [facility] Address [address] [place] [id number] Care Team Providers Care Enrobing Machine Feeder Name Role Phone Alicia Ordoñez Unavailable [phone] REASON FOR VISIT Refills MEDICATIONS Medication SIG (Take, Route, Frequency, Duration) Notes Start Date End Date Status FLUoxetine HCl 20 MG 1 capsule in the morning Orally Once a day for 90 day(s) 11/14/2023 Active hydroCHLOROthiazide 25 MG 1/2 tablet in the morning Orally Once a day for 180 days Note 1/2 tablet 02/24/2023 07/07/2024 Active Metoprolol Succinate ER 100 MG 1.5 tablet Orally Once a day Active Encounters Encounter Location Date Provider Diagnosis [address] [address] 01/09/2024 Alicia Ordoñez Essential hypertensi on I10 ASSESSMENTS Encounter Date Diagnosis Assessment Notes Treatment Notes Treatment Clinical Notes 01/09/2024 Essential hypertension (ICD-10 - I10) PLAN OF TREATMENT Medication Medication Name Sig Start Date Stop Date Notes FLUoxetine HCl 20 MG 1 capsule in the morning Orally Once a day for 90 day(s) 11/14/2023 hydroCHLOROthiazide 25 MG 1/2 tablet in the morning Orally Once a day for 180 days 02/24/2023 07/07/2024 Note 1/2 tablet Metoprolol Succinate ER 100 MG 1.5 table t Orally Once a day Progress Notes * Joselito STUBBS MDOB:1949 (73 yo M)Acc No.[id number]:01/09/2024 Patient:??ERMELINDAJACQUELYN Joselito Jon :1950?Age:73 Y?Sex:Erin marsh Address:[place] [id number] * Refills?? Refill FLUoxetine HCl Capsule, 20 MG, Orally, 90, 1 capsule in the morning, Once a day, 90 day(s) Refill hydroCHLOROthiazide Tablet, 25 MG, Orally, 90 Tablet, 1/2 tablet in the morning, Once a day, 180 days Refill Metoprolol Succinate ER Tablet Extended Release 24 Hour, 100 MG, Orally, 90, 1.5 tablet, Once a day, Refills=0 * true * Date:??
--- OUTSIDE RECORDS SUMMARY | 2024-01-23 10:25 | XMS_ITS | Encounter Summary ---
Author Organization [facility] Address [address] [place] [address] Care Team Providers Care Shellfish Checker Name Role Phone Elsewhere, Pcp Primary Care Provider Unavailabl e Reason for Referral * Outpatient (Routine) - Closed Specialty Diagnoses / Procedures Referred By Shelia t Referred To Contact Emergency Medicine Diagnoses Fracture Rib Multiple Closed Initial Right Koki Mar APRN, C.N.P., D.N.P. [address] [place] [address] Phone: tel: fax: [facility] Region Referral ID Status Reason Start Date Expiration Date Visits Re quested Visits Authorized [id number] Closed 12/22/2023 06/22/2025 1 1 Reason for Visit * Reason Comments Chest Wall Pain Encounter Details Date Type Department Care Team (Late st Contact Info) Description 12/22/2023 11:43 AM CDT - 12/22/2023 2:03 PM CDT Emergency [place] [facility] [address] [place] [phone] Koki Mar APRN, C.N.P., D.N.P. 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 [...] Care Everywhere. * Oxycodone Capsules or Tablets (Andorran) * Rib Fracture Nohw-cp-Xmnz (Andorran) * Using an Incentive Spirometer (Andorran) documented in this encounter Medications at Time [...] 01/01/2024 oxyCODONE (Roxicodone) 5 mg immediate release tabletIndications :Acute Pain Take 1 tablet (5 mg total) [...] History provided by: Patient and medical records director of surgery needed/used: no Mr. Joselito Diaz Is a 73-year-old male who presents via private vehicle accompanied with complaints of right-sided rib pain during a fall approximately 1 week ago onto the right side of hischest. Medical history includes hypertension, gout, and depression. He recalls tripping over his [employer] last week hitting the right side of [...] for multiple mildly displaced rib fractures (right [id number]). Text paged general surgery in [place]. 1312 Influenza A, PCR: Undetected 1313 Influenza B, PCR: Undetected 1313 Respiratory Syncytial Virus, PCR: Undetected 1313 SARS Coronavirus-2, PCR: Undetected 1320 Call received from [place] OR on behalf of Dr. Taylor. He agrees with outpatient follow up in [...] effusion or focal consolidation. Heart size normal. us Koki Mar APRN, C.N.P., D.N.P. IMG DIAGNO STIC IMAGING PROCEDURES Final Result * Lactate (12/22/2023 12:27 PM CDT) Lactate, P 1.7 0.5 - 2.2 mmol/L 12/22/2023 12:47 PM CDT [facility] Blood (Blood, Venous) 12/22/2023 12:27 PM CDT 12/22/2023 12:30 PM CDT us Koki Mar APRN, C.N.P., D.N.P. LAB BLOOD NON ADD-ON Final Result [facility] [address] [place] [address], [facility] [place] [address] [place] [address] * (ABNORMAL) Basic Metabolic Panel (12/22/2023 12:27 [...] C.N.P., D.N.P. LAB BLOOD ADD-ON Final Result [facility] [address] [place] [place] [address], [facility] [place] [address] [place] [address] * (ABNORMAL) CBC with Differential, Blood (12/22/2023 12:27 PM CDT) [facility] Hemoglobin 11.9(L) 13.2 - 16.6 g/dL 12/22/2023 [...] C.N.P., D.N.P. LAB BLOOD ADD-ON Final Result [facility] [address] [place] [address], [facility] [place] [address] * SARS CoV-2, Influenza A/B, RSV, PCR [...] test using the Xpert Xpress SARS-CoV-2/Flu/RSV assay ([employer] performed on the [employer] DX systems has received Emergency Use Authorization (EUA) by the U.S. Food and Drug Administration. Performance characteristics were verified by [facility] in a manner consistent with CLIA requirements. Fact sheets for this Emergency Use Authorization (EUA) assay can be found at the following links: For Healthcare Providers: https://www.fda.gov/media/492273/download For Patients: https://www.fda.gov/media/650258/download Specimen Source Swab, Nasopharynx 12/22/2023 12:30 PM CDT [facility] Swab (Nasopharynx) 12/22/2023 12:25 PM CDT 12/22/2023 12:30 PM CDT us Koki Mar APRN, C.N.P ., D.N.P. LAB MICROBIOLOGY - GENERAL ORDERABLES Final Result [facility] [address] [place] [address], [facility] [place] [address] [place] [phone] documented in this encounter Visit Diagnoses Diagnosis [...] documented as of this encounter Care Teams Shellfish Checker Relationship Specialty Start Date End Date Elsewhere, Pcp PCP - General Internal Medicine 12/22/23 documented as of this encounter
--- NOTE | 2024-01-23 11:00 | CRLHL7_ITS ---
For Patients: As a result of the Century Cures Act, medical imaging exams and procedure reports are released immediately into your electronic medical record. You may view this report before your referring provider. If you have questions, please contact your health care provider. INDICATION: Primary HTN TECHNIQUE: Grayscale, color Doppler and power Doppler ultrasound evaluation of the kidneys and renal arteries performed. COMPARISON: None available FINDINGS: BILATERAL RENAL ARTERY DUPLEX ULTRASOUND ABDOMINAL AORTA: Peak systolic velocity = 196 cm/s. No aortic aneurysm. RIGHT KIDNEY: 9.7 cm in length. There is no hydronephrosis. Peak systolic velocity = 144 cm/second Renal artery to aortic peak systolic velocity ratio = 0.7 Resistive indices: 0.7 Renal vein = patent LEFT KIDNEY: 11.7 cm in length. There is no hydronephrosis. Peak systolic velocity = 132 cm/second Renal artery to aortic peak systolic velocity ratio = 0.7 Resistive indices: 0.70 - 0.8 Renal vein = patent IMPRESSION: No evidence of significant renal artery stenosis. Dictated by Dennys Mcknight MD @ 01/24/2024 2:58:15 PM (Electronically Signed)
== END 2024-01-23 10:19 | disposition home or self-care (01) ==
LOC: US 10:21
PROVIDERS: PCP Family Medicine; Visit Provider Internal Medicine Nephrology
DX: I10 Essential (primary) hypertension (principal); E87.1 Hypo-osmolality and hyponatremia
CPT/HCPCS: 76775; 93975